=== PATIENT | male | born 1975 | race Caucasian/White ===

== ENCOUNTER 2021-05-08 10:57 | Inpatient (IN) | payer SELFPAY ==
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
[2021-05-08 10:59] VITALS: BP 136/89; PULSE 88; RESP 18; TEMP 37.1; O2SAT 94; BMI 22.4
[2021-05-08 11:12] VITALS: BP 136/89; PULSE 88; RESP 16; O2SAT 95
[2021-05-08 11:30] LABS: Amphetamines Screen Urine Positive (Negative); Barbiturates Screen Urine Negative (Negative); Benzodiazepines Screen Urine Negative (Negative); Cocaine Screen Urine Negative (Negative); Opiate Screen Urine Negative (Negative); PCP Screen Urine Negative (Negative); THC Screen Urine Positive (Negative)
--- NOTE | 2021-05-08 11:30 | XRR_ITS ---
PROCEDURE INFORMATION: Exam: XR Abdomen Exam date and time: 05/08/2021 11:30 AM Age: 46 years old Clinical indication: Abdominal pain; Additional info: ? Foreign body TECHNIQUE: Imaging protocol: XR of the abdomen. Views: Frontal supine view of the abdomen. 1 View. COMPARISON: CT abdomen pelvis w con* [id number] 07/25/2017 11:53 AM FINDINGS: Gastrointestinal tract: Normal. No bowel dilation. Negative for radiodense foreign body. There is moderate colonic fecal stasis in the ascending colon. Bones/joints: Unremarkable. XR/XR KUB [id number] IMPRESSION: No acute GI abnormality. Negative for radiodense GI tract foreign body
[2021-05-08 11:55] LABS: Basophils # 0.1 10^3/uL (0.0-0.1); Basophils % 0.8 %; Eosinophils % 0.3 %; Hematocrit 40.9 % (42.0-52.0); Hemoglobin 13.5 g/dL (11.7-16.6); Lymphocytes # 1.2 10^3/uL (0.8-4.8); Lymphocytes % 10.3 %; Mean Corpuscular Volume 90.9 fl (80-94); Mean Platelet Volume 10.4 fL (7.4-10.4); Monocytes % 9.2 %; Neutrophils # 8.87 10^3/uL (1.8-7.7); Nucleated Red Blood Cells % 0 %; Platelet Count 343 10^3/cmm (130-400); Red Cell Distribution Width 13.6 % (12.1-15.1); White Blood Count 11.2 10^3/uL (4.0-10.0)
[2021-05-08 12:28] LABS: Acetaminophen < 5.0 ug/mL (10-30); Alanine Aminotransferase 22 U/L (0-41); Albumin Level 4.9 g/dL (3.5-5.2); Alcohol Level < 10 mg/dL (0-10); Alkaline Phosphatase 93 IU/L (40-130); Aspartate Amino Transferase 26 U/L (0-40); Blood Urea Nitrogen 19 mg/dL (6-20); Calcium 8.8 mg/dL (8.5-10.5); Carbon Dioxide 25 mmol/L (22-29); Chloride 104 mmol/L (98-107); Glomerular Filtration Rate 104.5 mL/min (90-130); Glucose 98 mg/dL (65-115); Osmolality Calculated 296 mOsm/kg (285-295); Salicylate < 0.3 mg/dL (3-10); Sodium 142 mmol/L (136-145); Total Bilirubin 0.7 mg/dL (0.15-1.2); Total Protein 6.9 g/dL (6.6-8.7)
[2021-05-08 13:49] LABS: Free T4 Free Thyroxine 0.65 ng/dL (0.82-1.77)
[2021-05-08 15:23] VITALS: BP 122/76; PULSE 75; RESP 14; TEMP 36.8; O2SAT 98
[2021-05-08 20:29] VITALS: BP 126/79; PULSE 73; RESP 17; TEMP 36.8; O2SAT 97
[2021-05-09] MEDS: hyDROXYzine 25 mg Capsule 50 MG PO ×2 (02:39→19:50)
[2021-05-09 06:00] VITALS: BP 128/87; PULSE 73; RESP 19; TEMP 36.7; O2SAT 99
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
[2021-05-09] MEDS: levothyroxine 25 mcg Tablet PO (09:24)
[2021-05-09] MEDS: levothyroxine 100 mcg Tablet 200 MCG PO (09:24)
[2021-05-09 14:00] VITALS: BP 113/78; PULSE 88; RESP 20; TEMP 37.2; O2SAT 98
[2021-05-09 22:00] VITALS: BP 115/73; PULSE 54; RESP 20; TEMP 36.4; O2SAT 97
[2021-05-10 06:00] VITALS: BP 128/81; PULSE 62; RESP 18; TEMP 36.6; O2SAT 99
[2021-05-10] MEDS: levothyroxine 100 mcg Tablet 200 MCG PO (08:47)
[2021-05-10] MEDS: levothyroxine 25 mcg Tablet PO (08:47)
[2021-05-10] MEDS: nicotine 21 mg Patch 1 PATCH TRANSDERMA (09:33)
--- NOTE | 2021-05-10 10:30 | PC.OT ---
OT EVALUATION ATTEMPTED TWICE THIS A.M. PATIENT IS CURRENTLY VISITING WITH [facility] STAFF; WILL ATTEMPT AGAIN AT A LATER TIME.
[2021-05-10 14:00] VITALS: BP 95/65; PULSE 76; RESP 18; TEMP 36.9; O2SAT 99
--- NOTE | 2021-05-10 17:18 | P.NPUPN_ITS ---
Subjective NPU Subjective: Interval history: Patient presents today reporting that he has spoken to his and his job and things are stable and is good as can be expected in both situations. He showed positive insight into the situation identifying how it could have been so much worse for him or someone else. He reports that his goal is to learn his lesson from this relapse and to make his home life even better and to maintain his job which he reports is not in any kind of jeopardy. We discussed the risk-benefit alternatives of discharge in the morning and he understood and agreed proceed as is documented in his note. Mental Status Exam MSE Comments: This is a well-nourished, well-developed white male in hospital scrubs with improved grooming and adequate eye contact. No abnormal movements. Cooperative with exam in no acute distress. Speech was normal rate and volume. Patient mood described as good, affect congruent. Thought process, organized. Thought content: patient denies any suicidal or homicidal ideation, no delusions reported or noted, and denies any auditory or visual hallucinations. Attention and concentration are intact and memory is reliable but none were formally t ested. He is alert and oriented three times. Insight and judgment are limited, but improving Impulse control appears limited.? Vitals/I&O/Wt Last Vital Signs Temp 97.8 F 05/10/21 22:00 Pulse 71 05/10/21 22:00 Resp 20 H 05/10/21 22:00 BP 109/72 05/10/21 22:00 Pulse Ox 99 05/10/21 22:00 Data NPU : 05/08/21 11:35 05/08/21 11:35 A&P Assessment and plan (1) Sibling relational problem: Status: Acute (2) Methamphetamine abuse: Status: Acute (3) Acute psychosis: Status: Acute Plan This is a 46 year old white male with a long history of trauma and addiction with recent relapse on methamphetamine with psychotic features that lead to him intersecting with the police and being placed on a 96 hour hold. Continue current medications. We will offer medication as appropriate. Encourage individual, group and milieu therapy Continue q-15 minute check for safety Recommend sober living treatment at the highest level of care to which the patient is willing to commit. Will observe overnight and likely discharge tomorrow. Involuntary Hold Information 96 Hour Hold: 96 Hour Involuntary Admission: Yes 96 Hour Hold Ending Date: 05/14/21 96 Hour Hold Ending Time: 00:01 Attestations NPU Medical Necessity Statement*: Inpatient hospitalization is medically necessary and the clinically appropriate intervention at this time. We will monitor medications and make changes as indicated. Likely length of stay is 1-3 days. Coding Level of Care Code Acute Material Stockkeeper Yard for Keving Fwd Diagnoses Sibling relational problem Z63.8 Methamphetamine abuse F15.10 Acute psychosis F23
[2021-05-10] MEDS: hyDROXYzine 25 mg Capsule 50 MG PO (21:53)
[2021-05-10 22:00] VITALS: BP 109/72; PULSE 71; RESP 20; TEMP 36.6; O2SAT 99
[2021-05-11 06:00] VITALS: BP 108/78; PULSE 70; RESP 16; TEMP 36.8; O2SAT 99
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
[2021-05-11] MEDS: levothyroxine 100 mcg Tablet 200 MCG PO (07:53)
[2021-05-11] MEDS: acetaminophen 325 mg Tablet 650 MG PO (07:53)
[2021-05-11] MEDS: levothyroxine 25 mcg Tablet PO (07:53)
[2021-05-11 08:53] VITALS: BP 108/78; PULSE 70; RESP 16; TEMP 36.8; O2SAT 99
--- NOTE | 2021-05-11 09:30 | PC.NURSE ---
DISCHARGE- PT DISCHARGING AT THIS TIME. CALM, COOPERATIVE. DENIES ANY SI/HI AND AVH. HAS FOLLOW UP APPOINTMENT SCHEDULED. ALL PERSONAL BELONGINGS RETURNED TO PATIENT. PATIENT ARRIVED WITH BOTTLE OF ASSORTED PILLS THAT WERE NOT IN HIS NAME. PT REQUESTED STAFF TO KEEP AND DESTROY RATHER THAN RETURNING TO HIM AT PR. TO NPU TO PICK PT UP.
== END 2021-05-11 09:32 | disposition home or self-care (01) | DRG 885 ==
LOC: ER 14:05 → NP 14:19
PROVIDERS: Admitting Provider Psychiatry & Neurology Psychiatry; Emergency Provider Emergency Medicine; Visit Provider Psychiatry & Neurology Psychiatry
DX: F23 Brief psychotic disorder (principal); F17.210 Nicotine dependence, cigarettes, uncomplicated; F15.10 Other stimulant abuse, uncomplicated; Z63.0 Problems in relationship with spouse or partner
CPT/HCPCS: 36415; 74018; 80053; 80306; 80307; 84439; 84443; 85025; 97165; 99285

== ENCOUNTER 2023-02-22 16:25 | Emergency (ER) | payer SELFPAY ==
[2023-02-22 16:30] VITALS: BP 150/91; PULSE 68; RESP 18; TEMP 36.6; O2SAT 100; BMI 19.8
--- NOTE | 2023-02-22 16:38 | XRR_ITS ---
PROCEDURE INFORMATION: Exam: XR Abdomen Exam date and time: 02/22/2023 5:46 PM Age: 47 years old Clinical indication: Constipation TECHNIQUE: Imaging protocol: Radiologic exam of the abdomen. Views: Frontal supine view of the abdomen. 1 View. COMPARISON: CR XR KUB [id number] 05/08/2021 11:43 AM FINDINGS: Gastrointestinal tract: Mild increased gas and stool in the colon. Gas within the stomach. No small bowel dilatation or obstruction. Intraperitoneal space: No indication of free air. No abnormal calcifications are seen. Bones/joints: Visualized osseous structures show no acute abnormality. XR/XR KUB portable [id number] IMPRESSION: Nonspecific nonobstructive bowel gas pattern with suggestion of mild increased gas and stool in the colon which can be seen with constipation.
[2023-02-22 18:53] LABS: Basophils # 0.1 10^3/uL (0.0-0.1); Basophils % 0.8 %; Eosinophils # 0.3 10^3/uL (0.0-0.8); Eosinophils % 3.9 %; Hematocrit 39.3 % (37-53); Lymphocytes # 1.7 10^3/uL (0.8-4.8); Mean Corpuscular HGB Conc 34.1 g/dL (30-55); Mean Corpuscular Hemoglobin 29.7 pg (27-33); Mean Corpuscular Volume 87.1 fl (82-101); Mean Platelet Volume 9.3 fL (7.4-10.4); Monocytes % 12.5 %; Neutrophils # 4.77 10^3/uL (1.8-7.7); Neutrophils % 60.4 %; Nucleated Red Blood Cells % 0 %; Platelet Count 367 10^3/cmm (157-399); Red Blood Count 4.51 10^6/uL (3.85-5.65); Red Cell Distribution Width 13.9 % (12.1-15.1)
--- NOTE | 2023-02-22 18:55 | PC.NURSE ---
Report taken from Lola Osorio RN.
--- NOTE | 2023-02-22 19:13 | ED_ITS ---
HPI - Abdominal Pain 2 General: Chief Complaint: Abdominal Pain Stated Complaint: Abd, Cant use restroom, unable to eat, N/V Time Seen by Provider: 02/22/23 18:37 History of Present Illness: Patient presents to the ER with abdominal pain says has not had a bowel movement for approximately 1 week. Patient has attempted [id number]-sup-[id number] laxatives with no relief. Patient has had mild nausea vomiting with this. Patient states he is not use his levothyroxine for the last 30 days and this may be the cause of this. Patient has had decreased appetite's and decreased oral intake. Review of Systems 2 General: Reports: 10 or more systems reviewed and unremarkable except in HPI and below PFSH ED 2 PFSH: Medical History No significant past medical history Surgical History History of hernia repair History of carpal tunnel surgery Social History Substance/Drug Use: current Physical Exam 2 Const: COMMON NORMALS: no acute distress, average body habitus, patient oriented x3, no limitations, healthy appearing, alert and well nourished HENMT: COMMON NORMALS: normocephalic, atraumatic, hearing grossly normal bilaterally, external ears normal, Normal external nose present, moist oral mucous membranes and oropharynx normal HEAD & SCALP: normocephalic and atraumatic NOSE: Normal external nose present EXTERNAL EAR: Yes external ears normal Neck/C-Spine: COMMON NORMALS: no JVD Chest: COMMONS NORMALS: normal inspection of the chest and normal palpation of entire chest wall Resp: COMMON NORMALS: normal respiratory effort, No retractions, No use of accessory muscles and clear to auscultation bilaterally AUSCULTATION: clear to auscultation bilaterally Cardio: COMMON NORMALS: no JVD, regular rate, regular rhythm, S1 normal heart sound present, S2 normal heart sound present, No gallops present (Cardio), No clicks present (Cardio), No murmurs present (Cardio) and No rub (Cardio) R ATE: regular rate RHYTHM: regular rhythm HEART SOUNDS: S1 normal heart sound present and S2 normal heart sound present GI: COMMON NORMALS: Normal to inspection, nondistended, normoactive bowel sounds present, Soft to palpation, non-tender, No hepatosplenomegaly present and no masses PALPATION: Yes Soft to palpation and Yes No hepatosplenomegaly present Neuro: COMMON NORMALS: patient oriented x3 SENSORIUM/ORIENTATION: Yes alert Course 2 Vital Signs: Vital signs: Vital Signs Temperature 97.9 F 02/22/23 16:30 Pulse Rate 58 L 02/22/23 20:26 Respiratory Rate 16 02/22/23 19:57 Blood Pressure 130/91 02/22/23 20:26 Pulse Oximetry 98 02/22/23 20:26 Oxygen Delivery Me thod Room Air 02/22/23 20:26 MDM - Abdominal Pain Medical Decision Making Patient presents to the ER with complaints of constipation and being without his thyroid medicine for over a month. Lab work was obtained which revealed a significantly elevated TSH otherwise benign KUB showed pattern is consistent with constipation. Patient was given a liter of normal saline, 10 mg Dulcolax and 100 mg of Colace and will be restarted back on Synthroid 300 mcg the patient says he was taking previously. Differential Diagnosis Likely abdominal pain and constipation; Unlikely acute appendicitis, calculus of kidney, diverticulitis, endometriosis, gastroenteritis, pancreatitis or small bowel obstruction Medical Records I reviewed the patient's medical records. Lab Data I reviewed the patient's lab results. 02/22/23 18:42 02/22/23 18:42 Labs/Radiology: Radiology Impressions KUB X-Ray 02/22/23 16:38 IMPRESSION: Nonspecific nonobstructive bowel gas pattern with suggestion of mild increased gas and stool in the colon which can be seen with constipation. Laboratory Results WBC 7.90 10^3/uL (3.29-11.43) 02/22/23 18:42 RBC 4.51 10^6/uL (3.85-5.65) 02/22/23 18:42 Hgb 13.40 g/dL (11.27-16.99) 02/22/23 18:42 Hct 39.3 % (37-53) 02/22/23 18:42 MCV 87.1 fl (82-101) 02/22/23 18:42 MCH 29.7 pg (27-33) 02/22/23 18:42 MCHC 34.1 g/dL (30-55) 02/22/23 18:42 RDW 13.9 % (12.1-15.1) 02/22/23 18:42 Plt Count 367 10^3/cmm (157-399) 02/22/23 18:42 MPV 9.3 fL (7.4-10.4) 02/22/23 18:42 Neut % (Auto) 60.4 % 02/22/23 18:42 Lymph % (Auto) 22.0 % 02/22/23 18:42 [place] % (Auto) 12.5 % 02/22/23 18:42 Eos % (Auto) 3.9 % 02/22/23 18:42 Baso % (Auto) 0.8 % 02/22/23 18:42 Neut # (Auto) 4.77 10^3/uL (1.8-7.7) 02/22/23 18:42 Lymph # (Auto) 1.7 10^3/uL (0.8-4.8) 02/22/23 18:42 [place] # (Auto) 1.0 10^3/uL (0.2-0.9) H 02/22/23 18:42 Eos # (Auto) 0.3 10^3/uL (0.0-0.8) 02/22/23 18:42 Baso # (Auto) 0.1 10^3/uL (0.0-0.1) 02/22/23 18:42 Nucleated RBC % (auto) 0 % 02/22/23 18:42 Nucleated RBCs # 0.0 /100WBC 02/22/23 18:42 Sodium 142 mmol/L (136-145) 02/22/23 18:42 Potassium 3.6 mmol/L (3.5-5.1) 02/22/23 18:42 Chloride 106 mmol/L (98-107) 02/22/23 18:42 Carbon Dioxide 26 mmol/L (22-29) 02/22/23 18:42 Anion Gap 13.6 (5-19) 02/22/23 18:42 BUN 20 mg/dL (6-20) 02/22/23 18:42 Creatinine 1.1 mg/dL (0.7-1.2) 02/22/23 18:42 GFR Calculation 72.1 mL/min (90-130) L 02/22/23 18:42 Glucose 100 mg/dL (65-115) 02/22/23 18:42 Calculated Osmolality 297 mOsm/kg (285-295) H 02/22/23 18:42 Calcium 8.6 mg/dL (8.5-10.5) 02/22/23 18:42 Total Bilirubin 0.6 mg/dL (0.15-1.2) 02/22/23 18:42 AST 65 U/L (0-40) H 02/22/23 18:42 ALT 45 U/L (0-41) H 02/22/23 18:42 Alkaline Phosphatase 86 U/L (40-130) 02/22/23 18:42 Total Protein 6.3 g/dL (6.6-8.7) L 02/22/23 18:42 Albumin 4.2 g/dL (3.5-5.2) 02/22/23 18:42 Globulin 2.1 g/dL (1.3-4.6) 02/22/23 18:42 Lipase 41 U/L (13-60) 02/22/23 18:42 TSH 283.70 uIU/mL (0.27-4.20) H 02/22/23 18:42 Urine Color Yellow (Yellow) 02/22/23 19:08 Urine Appearance Clear (CLEAR) 02/22/23 19:08 Urine pH 6 (5-7) 02/22/23 19:08 Ur Specific [place] 1.030 (1.005-1.030) 02/22/23 19:08 Urine Protein Neg (Negative) 02/22/23 19:08 Urine Glucose (UA) Norm (Normal) 02/22/23 19:08 Urine Ketones 1+ (Negative) H 02/22/23 19:08 Urine Blood 2+ (Negative) H 02/22/23 19:08 Urine Nitrate Negative (Negative) 02/22/23 19:08 Urine Bilirubin Neg (Negative) 02/22/23 19:08 Urine Urobilinogen Norm mg/dL (Negative) 02/22/23 19:08 Ur Leukocyte Esterase Negative (Negative) 02/22/23 19:08 Urine RBC 0-4 /hpf (0-2) H 02/22/23 19:08 Urine WBC 0-4 /hpf (0-5) H 02/22/23 19:08 Ur Squamous Epith Cells 0-4 /hpf (0-5) H 02/22/23 19:08 Calcium Oxalate Crystal 5-10 /hpf H 02/22/23 19:08 Amorphous Sediment Not Reportable 02/22/23 19:08 Urine Bacteria n /hpf (NONE) 02/22/23 19:08 Hyaline Casts 0-4 /lpf H 02/22/23 19:08 Urine Mucus None /hpf 02/22/23 19:08 All radiology interpretation(s) finalized by discharge Discharge Plan Discharge Patient Disposition: Home Clinical Impression: Constipation, Hypothyroidism Condition: Stable Prescriptions: Discontinued levothyroxine 200 mcg Tablet 200 mcg PO DAILY Euthyrox 25 mcg tablet 25 mcg PO DAILY Discharge Orders: Discharge ED (Routine); Ordered 02/22/23 Ordered By: Jean Claude Hall Patient Instructions: Constipation - Adult, Hypothyroidism Coding Level of Care Code ED Information Services Tech for Chg [facility]
[2023-02-22 19:15] LABS: Add Urine Microscopic? YES; Bilirubin Urine Neg (Negative); Blood Urine 2+ (Negative); Glucose Urine UA Norm (Normal); Ketones Urine 1+ (Negative); Leukocyte Esterase Urine Negative (Negative); Nitrate Urine Negative (Negative); Protein Urine Neg (Negative); Urine Appearance Clear (CLEAR); Urine Color Yellow (Yellow); Urobilinogen Urine Norm (Negative); pH Urine 6 (5-7)
[2023-02-22 19:26] LABS: Alanine Aminotransferase 45 U/L (0-41); Albumin Level 4.2 g/dL (3.5-5.2); Alkaline Phosphatase 86 U/L (40-130); Anion Gap 13.6 (5-19); Aspartate Amino Transferase 65 U/L (0-40); Blood Urea Nitrogen 20 mg/dL (6-20); Calcium 8.6 mg/dL (8.5-10.5); Carbon Dioxide 26 mmol/L (22-29); Chloride 106 mmol/L (98-107); Globulin 2.1 g/dL (1.3-4.6); Glomerular Filtration Rate 72.1 mL/min (90-130); Glucose 100 mg/dL (65-115); Lipase 41 U/L (13-60); Osmolality Calculated 297 mOsm/kg (285-295); Potassium 3.6 mmol/L (3.5-5.1); Sodium 142 mmol/L (136-145); Total Bilirubin 0.6 mg/dL (0.15-1.2); Total Protein 6.3 g/dL (6.6-8.7)
[2023-02-22 19:29] LABS: Add Urine Culture? No; Bacteria Urine n /hpf; Hyaline Casts Urine 0-4 /lpf; RBC Urine 0-4 /hpf (0-2); Squamous Epithelial Cell Urine 0-4 /hpf (0-5); WBC Urine 0-4 /hpf (0-5)
[2023-02-22] MEDS: bisacodyl 5 mg Tablet 10 MG PO (19:52)
[2023-02-22] MEDS: docusate sodium 100 mg Capsule PO (19:52)
[2023-02-22] MEDS: sodium chloride 0.9% 1,000 ML 999 ML IV (19:53)
[2023-02-22 19:57] VITALS: BP 125/80; PULSE 55; RESP 16; O2SAT 98
[2023-02-22 20:26] VITALS: BP 130/91; PULSE 58; O2SAT 98
[2023-02-22 20:53] VITALS: BP 166/119; PULSE 66; RESP 16; O2SAT 96
== END 2023-02-22 20:54 | disposition home or self-care (01) ==
PROVIDERS: Emergency Medicine; Emergency Provider Emergency Medicine
DX: K59.00 Constipation, unspecified (principal); E03.9 Hypothyroidism, unspecified
CPT/HCPCS: 74018; 80053; 81001; 83690; 84443; 85025; 99284; J7030

== ENCOUNTER 2023-02-26 10:25 | Emergency (ER) | payer SELFPAY ==
--- NOTE | 2023-02-26 10:27 | XRR_ITS ---
PROCEDURE INFORMATION: Exam: XR Chest Exam date and time: 02/26/2023 11:06 AM Age: 47 years old Clinical indication: Angina; Additional info: Cp TECHNIQUE: Imaging protocol: Radiologic exam of the chest. Views: 1 view. COMPARISON: CR (ABDOMEN, ) 02/22/2023 5:46 PM FINDINGS: Lungs: No significant active pathology. Pleural spaces: No pleural effusion or pneumothorax. Heart/Mediastinum: Unremarkable. Bones/joints: No significant pathology. XR/XR chest 1V portable [id number] IMPRESSION: No significant active disease.
[2023-02-26 10:30] VITALS: BP 101/62; PULSE 75; RESP 16; TEMP 36.7; O2SAT 100
--- NOTE | 2023-02-26 10:32 | ECG_ITS ---
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 Measurements Intervals [place] Rate: 69 P: 75 VA: 168 QRS: 84 QRSD: 101 T: 69 QT: 411 QTc: 441 Interpretive Statements SINUS RHYTHM No previous ECG available for comparison Electronically Signed On 02-26-2023 11:40:52 HEALTH CARE / MEDICAL JOB TITLES by Carlos Pena M.D. [email or web address]
[2023-02-26 10:48] LABS: Basophils % 0.4 %; Eosinophils # 0.1 10^3/uL (0.0-0.8); Hematocrit 41.6 % (37-53); Lymphocytes # 1.8 10^3/uL (0.8-4.8); Lymphocytes % 16.2 %; Mean Corpuscular HGB Conc 32.7 g/dL (30-55); Mean Corpuscular Hemoglobin 29.5 pg (27-33); Mean Corpuscular Volume 90.2 fl (82-101); Mean Platelet Volume 9.2 fL (7.4-10.4); Monocytes # 1.4 10^3/uL (0.2-0.9); Monocytes % 12.4 %; Neutrophils # 7.75 10^3/uL (1.8-7.7); Neutrophils % 69.6 %; Nucleated Red Blood Cells % 0 %; Platelet Count 317 10^3/cmm (157-399); Red Blood Count 4.61 10^6/uL (3.85-5.65); Red Cell Distribution Width 14.2 % (12.1-15.1); White Blood Count 11.12 10^3/uL (3.29-11.43)
[2023-02-26 11:07] LABS: Troponin(5th) Baseline 14 ng/L (0-15)
[2023-02-26 11:14] LABS: Alanine Aminotransferase 64 U/L (0-41); Albumin Level 4.3 g/dL (3.5-5.2); Alkaline Phosphatase 90 U/L (40-130); Anion Gap 14.4 (5-19); Aspartate Amino Transferase 92 U/L (0-40); Blood Urea Nitrogen 15 mg/dL (6-20); Calcium 9.4 mg/dL (8.5-10.5); Carbon Dioxide 28 mmol/L (22-29); Chloride 96 mmol/L (98-107); Globulin 1.8 g/dL (1.3-4.6); Glomerular Filtration Rate 72.1 mL/min (90-130); Glucose 94 mg/dL (65-115); Osmolality Calculated 279 mOsm/kg (285-295); Potassium 4.4 mmol/L (3.5-5.1); Sodium 134 mmol/L (136-145); Total Bilirubin 0.5 mg/dL (0.15-1.2); Total Protein 6.1 g/dL (6.6-8.7)
[2023-02-26 11:23] VITALS: PULSE 75; RESP 20; O2SAT 97
[2023-02-26 11:30] VITALS: BP 104/74; PULSE 66; RESP 22; O2SAT 98
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
--- NOTE | 2023-02-26 12:35 | ECG_ITS ---
[facility] Test Date: 2023-02-26 Pat Name: Aidan Rodrigues Department: Room: Gender: Male Story Teller: : 1975 Requested By: Yola Drew Order Number: [id number] Terri MD: Carlos Pena M.D. Measurements Intervals [address] [place] Rate: 61 P: 72 AK: 179 QRS: 86 QRSD: 104 T: 71 QT: 425 QTc: 430 Interpretive Statements SINUS RHYTHM Compared to ECG 02/26/2023 10:32:17 No significant changes Electronically Signed On 02-26-2023 14:50:02 COMPOUNDER by Carlos Pena M.D. [id number]
[2023-02-26 13:14] VITALS: PULSE 58; RESP 18; O2SAT 99
[2023-02-26 13:19] LABS: Troponin 5 2HR 11.78 ng/L (0-15); Troponin 5 2HR Delta -2.22 ABS# (0-10)
== END 2023-02-26 13:41 | disposition home or self-care (01) ==
PROVIDERS: Emergency Medicine; Emergency Provider Emergency Medicine
DX: R07.89 Other chest pain (principal); F15.10 Other stimulant abuse, uncomplicated; E03.9 Hypothyroidism, unspecified; Z91.148 Patient's other noncompliance with medication regimen for other reason
CPT/HCPCS: 36415; 71045; 80053; 84443; 84484; 85025; 93005; 96372; 99285; J2060

== ENCOUNTER 2023-03-14 18:37 | Emergency (ER) | payer SELFPAY ==
[2023-03-14 18:55] VITALS: BP 128/82; PULSE 86; RESP 16; TEMP 36.4; O2SAT 97; BMI 20.9
--- NOTE | 2023-03-14 19:58 | ED_ITS ---
HPI - Dental/Oral General: Chief complaint: Dental/Oral Stated complaint: jaw swelling, congestion Time Seen by Provider: 03/14/23 19:26 Source: patient Mode of arrival: ambulatory Limitations: no limitations History of Present Illness: 47yo male presents with family for evalu ation of left-sided facial swelling and dental pain. Patient reports that he does have several broken teeth to the area. States that his pain started last night. Patient reports that he did have swelling to the area, so he did press on it. States blood did come out, then the swelling started. Patient denies any fever, difficulty swallowing, painful tongue movements. Associated symptoms: Denies fever(s) Review of Systems Const: Denies: fever(s) or chills ENMT: Reports: dental pain GI: Denies: nausea or vomiting PFSH ED PFSH: Medical History No significant past medical history Surgical History History of hernia repair History of carpal tunnel surgery Social History Substance/Drug Use: current Physical Exam Const: COMMON NORMALS: no acute distress GENERAL APPEARANCE: cooperative and comfortable OTHER: Patient is ambulatory to vertical flow exam chair without difficulty. He is interactive with exam appropriately. Family is at bedside HENMT: COMMON NORMALS: normocephalic and Normal external nose present HEAD & SCALP: normocephalic NOSE: Normal external nose present TEETH & GINGIVA: Yes poor dentition (throughout) and Yes other (localized tenderness and mild swelling above #11. No abscess visualized) THROAT: posterior oropharynx normal OTHER: Patient is able to move tongue with no difficulty. No drooling noted Neck/C-Spine: COMMON NORMALS: full ROM Resp: COMMON NORMALS: normal respiratory effort Extremity: COMMON NORMALS: full ROM Psych: COMMON NORMALS: cooperative Course Vital Signs: Vital signs: Vital Signs Temperature 97.5 F L 03/14/23 18:55 Pulse Rate 86 03/14/23 18:55 Respiratory Rate 16 03/14/23 18:55 Blood Pressure 128/82 03/14/23 18:55 Pulse Oximetry 97 03/14/23 18:55 MDM - Dental/Oral Medical Decision Making 47yo male here with family for evaluation of left upper dental pain that started last night and worsened with swelling of his face today. Patient does state that he has chronically bad teeth and he knows that he needs to have improved. States that he has had infection before, but has not had associated swelling of the face. States that he has not been on any antibiotics within the last few months. Patient denies fever, difficulty swallowing, painful tongue movements, drooling, any other concern at this time. Patient is nontoxic in appearance. Vital signs are stable. No indication of Ludewig's. Discussed with patient and family this is likely an infection although there is no abscess visualized. Augmentin prescribed and first dose provided while in the emergency department. Patient did receive ketorolac while in the emergency department as well. Recommend he follow-up with a dentist as soon as possible for definitive care of his teeth. Advised to return to the emergency department if any rapid worsening symptoms, difficulty swallowing, painful tongue movements, and as needed. Patient and family state understanding and have no further questions at this time. Differential Diagnosis Likely gingival abscess, dental caries, toothache, dental abscess and fracture of tooth Medical Records I reviewed the patient's medical records. No radiology studies performed this visit Discharge Plan Discharge Patient Disposition: Home Clinical Impression: Dental infection, Poor dentition Condition: Stable Prescriptions: New amoxicillin-pot clavulanate 875-125 mg tablet 1 tab PO Q12H Qty: 14 0RF ketorolac 10 mg tablet 10 mg PO Q6H PRN (Reason: pain) 5 Days Qty: 20 0RF No Action levothyroxine 300 mcg tablet 300 mcg PO DAILY Qty: 30 0RF Synthroid 300 mcg tablet 300 mcg PO DAILY Qty: 30 0RF Discharge Orders: Discharge ED (Routine); Ordered 03/14/23 Ordered By: Rommel Londono Discharge Diet: Advance as tolerated Discharge Activity: Resume usual activity Patient Instructions: Toothache (ED) Activity Restrictions/Additional Instructions: Augmentin has been sent to your pharmacy for concern of dental infection Ketorolac has been sent to your pharmacy to help with pain. Please do not take ibuprofen, naproxen, or Advil while taking this medication Use salt water rinses after eating and smoking for the next several days Application of a cool compress will help with swelling. Apply for 5 to 10 minutes at a time. Follow-up with your dentist as soon as possible Return to the emergency department if any rapid worsening symptoms, difficulty swallowing, painful tongue movements, and as needed Coding Level of Care Code ED Percussion Welding Machine Operator for Gianfranco Britton
[2023-03-14] MEDS: ketorolac 30 mg/mL INJ IM (20:06)
[2023-03-14] MEDS: amoxicillin-clav 875-125 mg Tablet 1 TAB PO (20:07)
== END 2023-03-14 20:16 | disposition home or self-care (01) ==
PROVIDERS: Emergency Provider Nurse Practitioner
DX: K04.7 Periapical abscess without sinus (principal)
CPT/HCPCS: 96372; 99284; J1885

== ENCOUNTER 2024-01-15 12:24 | Inpatient (IN) | payer SELFPAY ==
[2024-01-15 12:37] VITALS: BP 142/90; PULSE 98; RESP 18; O2SAT 96
--- NOTE | 2024-01-15 12:44 | ED.C_ITS ---
HPI - Psych 2 General: Chief Complaint: Psychiatric Symptoms Stated Complaint: MHE Time Seen by Provider: 01/15/24 12:28 Source: patient Mode of arrival: ambulatory Limitations: no limitations History of Present Illness: Patient is a 48-year-old male presents to ED today for medical evaluation. Patient states he did methamphetamine 3 days ago and states he normally handles meth well . He states today he has had a plethora of symptoms. History is hard to follow as patient's speech is tangential and illogical. He begins talking about how he feels like the sun is beating down on him. He feels like he can feel electrical signals in his brain and feels like somebody shocked his testicles. He feels the weight of oppression upon him . He feels like he is being choked. States he can feel my insides . He is pacing around his room hyperactive. MD complaint: altered mental status (psychosis) Onset (ago): day(s) Duration: constant History of same: Yes Relieving factors: none Exacerbating factors: drug use Associated psychiatric symptoms: racing thoughts Treatments prior to arrival: none Related Data Previous Rx's Medication Instructions Recorded levothyroxine 300 mcg tablet 300 mcg PO DAILY #30 tabs 02/22/23 Allergies Allergy/AdvReac Type Severity Reaction Status Date / Time No Known Allergies Allergy Verified 02/26/23 12:30 Review of Systems 2 General: Reports: ROS unobtainable due to medical condition and ROS unobtainable due to mental status (psychosis ) [facility] ED 2 PFSH: Medical History No significant past medical history Surgical History History of hernia repair History of carpal tunnel surgery Social History Substance/Drug Use: current Physical Exam 2 Const: COMMON NORMALS: average body habitus, patient oriented x3, no limitations, healthy appearing, alert and well nourished EXAM LIMITATIONS: a ltered mental status (psychosis) GENERAL APPEARANCE: cooperative and other (hyperactive) Resp: COMMON NORMALS: normal respiratory effort and clear to auscultation bilaterally AUSCULTATION: clear to auscultation bilaterally Cardio: COMMON NORMALS: regular rate and regular rhythm RATE: regular rate RHYTHM: regular rhythm Extremity: GENERAL: Yes normal exam except as noted Neuro: JESUS COMA SCALE: document GCS findings Jesus coma scale eye opening: Spontaneous [place] coma scale verbal response: Orientated Jesus coma scale motor response: Obey commands [place] coma scale total score: 15 COMMON NORMALS: patient oriented x3 SENSORIUM/ORIENTATION: Yes alert Psych: APPEARANCE: Yes grossly normal ATTITUDE: Yes engaged A CTIVITY/MOTOR BEHAVIOR: Yes appropriate eye contact SPEECH: Yes excessive MOOD & AFFECT: Yes elevated mood THOUGHT PROCESS: Illogical thought process present and Tangential thought process present INSIGHT: Fair insight present (Psych) JUDGEMENT: Fair judgement present (Psych) Course 2 Consultations: Consultation #1: Dr. 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 Lab Data 01/15/24 13:26 01/15/24 13:26 Laboratory Results WBC 12.14 10^3/uL (3.29-11.43) H 01/15/24 13:26 RBC 4.77 10^6/uL (3.85-5.65) 01/15/24 13:26 Hgb 14.00 g/dL (11.27-16.99) 01/15/24 13:26 Hct 41.2 % (37-53) 01/15/24 13:26 MCV 86.4 fl (82-101) 01/15/24 13:26 MCH 29.4 pg (27-33) 01/15/24 13:26 MCHC 34.0 g/dL (30-55) 01/15/24 13:26 RDW 13.2 % (12.1-15.1) 01/15/24 13:26 Plt Count 395 10^3/cmm (157-399) 01/15/24 13:26 MPV 9.5 fL (7.4-10.4) 01/15/24 13:26 Neut % (Auto) 73.8 % 01/15/24 13:26 Lymph % (Auto) 14.1 % 01/15/24 13:26 [place] % (Auto) 11.0 % 01/15/24 13:26 Eos % (Auto) 0.3 % 01/15/24 13:26 Baso % (Auto) 0.6 % 01/15/24 13:26 Neut # (Auto) 8.95 10^3/uL (1.8-7.7) H 01/15/24 13:26 Lymph # (Auto) 1.7 10^3/uL (0.8-4.8) 01/15/24 13:26 [place] # (Auto) 1.3 10^3/uL (0.2-0.9) H 01/15/24 13:26 Eos # (Auto) 0.0 10^3/uL (0.0-0.8) 01/15/24 13:26 Baso # (Auto) 0.1 10^3/uL (0.0-0.1) 01/15/24 13:26 Nucleated RBC % (auto) 0 % 01/15/24 13:26 Nucleated RBCs # 0.0 /100WBC 01/15/24 13:26 Sodium 136 mmol/L (136-145) 01/15/24 13:26 Potassium 4.1 mmol/L (3.5-5.1) 01/15/24 13:26 Chloride 101 mmol/L (98-107) 01/15/24 13:26 Carbon Dioxide 24 mmol/L (22-29) 01/15/24 13:26 Anion Gap 15.1 (5-19) 01/15/24 13:26 BUN 13 mg/dL (6-20) 01/15/24 13:26 Creatinine 0.9 mg/dL (0.7-1.2) 01/15/24 13:26 GFR Calculation 90.4 mL/min (90-130) 01/15/24 13:26 Glucose 102 mg/dL (65-115) 01/15/24 13:26 Calculated Osmolality 282 mOsm/kg (285-295) L 01/15/24 13:26 Calcium 8.5 mg/dL (8.5-10.5) 01/15/24 13:26 Total Bilirubin 0.5 mg/dL (0.15-1.2) 01/15/24 13:26 AST 36 U/L (0-40) 01/15/24 13:26 ALT 26 U/L (0-41) 01/15/24 13:26 Alkaline Phosphatase 94 U/L (40-130) 01/15/24 13:26 Total Protein 6.4 g/dL (6.6-8.7) L 01/15/24 13:26 Albumin 4.3 g/dL (3.5-5.2) 01/15/24 13:26 Globulin 2.1 g/dL (1.3-4.6) 01/15/24 13:26 TSH 11.66 uIU/mL (0.27-4.20) H 01/15/24 13:26 Salicylates < 0.3 mg/dL (3-10) L 01/15/24 13:26 Urine Opiates Screen Negative ng/mL (Negative) 01/15/24 13:12 Acetaminophen < 5.0 ug/mL (10-30) L 01/15/24 13:26 Ur Barbiturates Screen Negative ng/mL (Negative) 01/15/24 13:12 Ur Phencyclidine Scrn Negative ng/mL (Negative) 01/15/24 13:12 Ur Amphetamines Screen Positive ng/mL (Negative) H 01/15/24 13:12 U Benzodiazepines Scrn Negative ng/mL (Negative) 01/15/24 13:12 Urine Cocaine Screen Negative ng/mL (Negative) 01/15/24 13:12 U Marijuana (THC) Screen Positive ng/mL (Negative) H 01/15/24 13:12 Ethyl Alcohol < 10 mg/dL (0-10) 01/15/24 13:26 No radiology studies performed this visit Discharge Plan Discharge Patient Disposition: Admitted As Inpatient Clinical Impression: Methamphetamine abuse, Acute psychosis Condition: Stable Prescriptions: No Action levothyroxine 300 mcg tablet 300 mcg PO DAILY Qty: 30 0RF Patient Instructions: Opioid Safety, Pain Management Coding Level of Care Code ED Palliative Care Nurse Practitioner for Gianfranco Britton
[2024-01-15] MEDS: LORazepam 2 mg/mL INJ 1 mL 1 MG IM (13:10)
[2024-01-15] MEDS: haloperidol inj 5 mg/mL INJ 1 mL IM (13:14)
[2024-01-15 13:15] VITALS: TEMP 36.7
--- NOTE | 2024-01-15 13:35 | PC.PHAR ---
Addendum entered by Tegan Evans 01/15/24 13:39: Verified with Ross Conteh. Original Note: Pt unable to verify his medications. Only current medication is Levothyroxin 300mcg qam last filled 12/14/23 90ds.
[2024-01-15 13:42] LABS: Basophils # 0.1 10^3/uL (0.0-0.1); Basophils % 0.6 %; Eosinophils % 0.3 %; Hematocrit 41.2 % (37-53); Lymphocytes # 1.7 10^3/uL (0.8-4.8); Lymphocytes % 14.1 %; Mean Corpuscular Hemoglobin 29.4 pg (27-33); Mean Corpuscular Volume 86.4 fl (82-101); Mean Platelet Volume 9.5 fL (7.4-10.4); Monocytes # 1.3 10^3/uL (0.2-0.9); Neutrophils # 8.95 10^3/uL (1.8-7.7); Neutrophils % 73.8 %; Nucleated Red Blood Cells % 0 %; Platelet Count 395 10^3/cmm (157-399); Red Blood Count 4.77 10^6/uL (3.85-5.65); Red Cell Distribution Width 13.2 % (12.1-15.1); White Blood Count 12.14 10^3/uL (3.29-11.43)
--- NOTE | 2024-01-15 13:45 | PC.NURSE ---
96 hr rights reviewed with patient @1317 with assistance of [facility] security messenger [employer]. All education reviewed with patient. No verbalized comments, concerns, or questions at this time. Patient does appear to be under the influence of something, but verbalizes understandment to 96 hr hold conditions. Patient copy left @bedside with patient. Patient provided with a water.
[2024-01-15 13:54] LABS: Amphetamines Screen Urine Positive (Negative); Barbiturates Screen Urine Negative (Negative); Benzodiazepines Screen Urine Negative (Negative); Cocaine Screen Urine Negative (Negative); Opiate Screen Urine Negative (Negative); PCP Screen Urine Negative (Negative); THC Screen Urine Positive (Negative)
[2024-01-15 14:10] LABS: Acetaminophen < 5.0 ug/mL (10-30); Alanine Aminotransferase 26 U/L (0-41); Albumin Level 4.3 g/dL (3.5-5.2); Alcohol Level < 10 mg/dL (0-10); Alkaline Phosphatase 94 U/L (40-130); Anion Gap 15.1 (5-19); Aspartate Amino Transferase 36 U/L (0-40); Blood Urea Nitrogen 13 mg/dL (6-20); Calcium 8.5 mg/dL (8.5-10.5); Carbon Dioxide 24 mmol/L (22-29); Chloride 101 mmol/L (98-107); Creatinine Clr Calc Pharmacy 105.8816; Globulin 2.1 g/dL (1.3-4.6); Glomerular Filtration Rate 90.4 mL/min (90-130); Glucose 102 mg/dL (65-115); Osmolality Calculated 282 mOsm/kg (285-295); Potassium 4.1 mmol/L (3.5-5.1); Salicylate < 0.3 mg/dL (3-10); Sodium 136 mmol/L (136-145); Thyroid Stimulating Hormone 11.66 uIU/mL (0.27-4.20); Total Bilirubin 0.5 mg/dL (0.15-1.2); Total Protein 6.4 g/dL (6.6-8.7)
[2024-01-15 17:07] VITALS: BP 137/80; PULSE 99; O2SAT 96
[2024-01-15 17:10] VITALS: BP 137/80; PULSE 99; O2SAT 96
[2024-01-15 17:12] VITALS: BP 129/85; PULSE 65; RESP 20; TEMP 36.6; O2SAT 99
--- NOTE | 2024-01-15 17:47 | PC.NURSE ---
Patient came to the unit because he reports feelings of oppression. Patient states that his family has been acting weird. Patient's family however states that patient himself is acting weird. Patient feels as though he has been poisoned. Patient endorses taking methamphetamines three days ago. Patient has flight of ideas, paranoia, and disorganized thought flow. During admission assessment, patient denies suicidal thoughts, homicidal thoughts, and hallucinations. Patient says that he sometimes has anxiety and depression. Patient was given ativan and haldol IM in ED. Patient kept falling asleep during shift assessment. Patient calm and polite.
--- NOTE | 2024-01-15 20:04 | PC.NURSE ---
pt ref vs resp 18 charge notified
[2024-01-16 06:00] VITALS: BP 126/82; PULSE 72; RESP 18; TEMP 36.7; O2SAT 94
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
[2024-01-16] MEDS: levothyroxine 150 mcg Tablet 300 MCG PO (09:23)
[2024-01-16 13:54] VITALS: BP 114/74; PULSE 88; RESP 16; TEMP 36.8; O2SAT 99
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
[2024-01-16] MEDS: nicotine 2 mg Gum BUCCAL (17:26)
[2024-01-16 20:17] VITALS: BP 125/81; PULSE 63; RESP 18; TEMP 37; O2SAT 99
[2024-01-17 06:00] VITALS: BP 137/91; PULSE 68; RESP 16; TEMP 36.8; O2SAT 98
[2024-01-17] MEDS: nicotine 4 mg lozenge MUCOUS MEM ×5 (06:13→19:51)
[2024-01-17] MEDS: levothyroxine 150 mcg Tablet 300 MCG PO (08:25)
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
[2024-01-17 14:55] VITALS: BP 110/80; PULSE 87; RESP 18; TEMP 37.1; O2SAT 97
--- NOTE | 2024-01-17 15:49 | P.NPUPN_ITS ---
Subjective NPU 2 Subjective: Patient presented today reporting that he is doing okay. He reports that he is aware that his family is now saying that he cannot go home until he has had some sober living treatment. He reports he will be working with the social work team to consider what options are available. He reports that they are exploring [facility] as well as other options. He continues to report no need for any additional medications. He denies any side effects with current medications. Mental Status Exam 2 MSE Comments: This is a slender possibly underweight but well-developed white male in hospital scrubs with limited grooming and adequate eye contact. No abnormal movements. Cooperative with exam in mild distress. Speech was normal rate and volume. Patient mood described as a little better, affect slightly subdued. Thought process, organized. Thought content: patient denies any suicidal or homicidal ideation, no delusions reported or noted, and denies any auditory or visual hallucinations but does acknowledge that there were some perceptual disturbances that led to him coming to the hospital that he now attributes to methamphetamine use. Attention and concentration are intact and memory appears mostly reliable but none were formally tested. He is alert and oriented x 3. Insight and judgment are limited. Impulse control appears limited. Vitals/I&O/Wt Last Vital Signs Temp 98.7 F 01/17/24 14:55 Pulse 87 01/17/24 14:55 Resp 18 01/17/24 14:55 BP 110/80 01/17/24 14:55 Pulse Ox 97 01/17/24 14:55 O2 Del Method Room Air 01/16/24 13:54 Data NPU 01/15/24 13:26 01/15/24 13:26 A&P Assessment and plan (1) Acute psychosis: (2) Sibling relational problem: (3) Acute psychosis: (4) Methamphetamine use disorder, severe: Plan This is a 48 year old white male with a long history of trauma and addiction with with past and present history of methamphetamine use with psychotic features with a previous hospitalization with these almost identical issues who started having some perceptual disturbances that led to him being brought to the emergency department and admitted secondary to the psychotic symptoms. 1. Continue off medications currently. But continue home medications. 2. Encourage individual, group and milieu therapy 3. Continue q-15 minute check for safety 4. Recommend sober living treatment at the highest level of care to which the patient is willing to commit. He is considering inpatient options. 5. Obtain collateral information. 6. Evaluate for safety against the backdrop of the 96-hour hold. Involuntary Hold Information 2 96 Hour Hold: 96 Hour Involuntary Admission: Yes 96 Hour Hold Ending Date: 01/22/24 96 Hour Hold Ending Time: 12:01 Other Hold: Hold End Date: 01/22/24 Attestations NPU 2 Medical Necessity Statement*: Inpatient hospitalization is medically necessary and the clinically appropriate intervention at this time. We will monitor/initiate medications and make changes as indicated. Patient will be in the hospital for over two midnights. Likely length of stay is 1-3 days. Coding Level of Care Code Acute Code for g Fwd Diagnoses Acute psychosis F23 Sibling relational problem Z63.8 Methamphetamine use disorder, severe F15.20
[2024-01-17] MEDS: trazodone 50 mg Tablet PO (19:52)
[2024-01-17] MEDS: hyDROXYzine 25 mg Capsule 50 MG PO (19:52)
[2024-01-17 20:09] VITALS: BP 114/80; PULSE 77; RESP 18; TEMP 36.8; O2SAT 96
[2024-01-18 06:00] VITALS: BP 134/86; PULSE 68; RESP 16; TEMP 37; O2SAT 99
[2024-01-18] MEDS: nicotine 4 mg lozenge MUCOUS MEM ×4 (06:13→20:23)
[2024-01-18] MEDS: acetaminophen 325 mg Tablet 650 MG PO (06:13)
[2024-01-18] MEDS: levothyroxine 150 mcg Tablet 300 MCG PO (08:33)
[2024-01-18] MEDS: hyDROXYzine 25 mg Capsule 50 MG PO ×2 (12:11→20:23)
[2024-01-18 14:00] VITALS: BP 115/77; PULSE 79; RESP 18; TEMP 36.6; O2SAT 98
[2024-01-18] MEDS: OLANZapine 5 mg ODT PO (15:55)
--- NOTE | 2024-01-18 17:23 | P.NPUPN_ITS ---
Subjective NPU 2 Subjective: Patient presented today reporting that he is feeling better and believes that things are going fine. He is excited about the fact that he was able to get into [facility] so quickly. He reports that he is looking forward to discharge tomorrow and continuing there. He denies any side effects to medications and denies any other concerns. Mental Status Exam 2 MSE Comments: This is a slender possibly underweight but well-developed white male in hospital scrubs with limited grooming and adequate eye contact. No abnormal movements. Cooperative with exam in no acute distress. Speech was normal rate and volume. Patient mood described as better, affect slightly subdued. Thought process, organized. Thought content: patient denies any suicidal or homicidal ideation, no delusions reported or noted, and denies any auditory or visual hallucinations. Attention and concentration are intact and memory appears mostly reliable but none were formally tested. He is alert and oriented x 3. Insight and judgment are limited. Impulse control appears limited. Vitals/I&O/Wt Last Vital Signs Temp 98 F 01/18/24 14:00 Pulse 79 01/18/24 14:00 Resp 18 01/18/24 14:00 BP 115/77 01/18/24 14:00 Pulse Ox 98 01/18/24 14:00 O2 Del Method Room Air 01/18/24 14:00 Data NPU 01/15/24 13:26 01/15/24 13:26 A&P Assessment and plan (1) Acute psychosis: (2) Sibling relational problem: (3) Acute psychosis: (4) Methamphetamine use disorder, severe: Plan This is a 48 year old white male with a long history of trauma and addiction with with past and present history of methamphetamine use with psychotic features with a previous hospitalization with these almost identical issues who started having some perceptual disturbances that led to him being brought to the emergency department and admitted secondary to the psychotic symptoms. 1. Continue off medications currently. But continue home medications. 2. Encourage individual, group and milieu therapy 3. Continue q-15 minute check for safety 4. Recommend sober living treatment at the highest level of care to which the patient is willing to commit. Plan for discharge to [facility] tomorrow. 5. Obtain collateral information. 6. Evaluate for safety against the backdrop of the 96-hour hold. Involuntary Hold Information 2 96 Hour Hold: 96 Hour Involuntary Admission: Yes 96 Hour Hold Ending Date: 01/22/24 96 Hour Hold Ending Time: 12:01 Other Hold: Hold End Date: 01/22/24 Attestations NPU 2 Medical Necessity Statement*: Inpatient hospitalization is medically necessary and the clinically appropriate intervention at this time. We will monitor/initiate medications and make changes as indicated. Likely length of stay is 1 day. Coding Level of Care Code Acute Code for Chg Fwd Diagnoses Acute psychosis F23 Sibling relational problem Z63.8 Methamphetamine use disorder, severe F15.20
[2024-01-18 19:27] VITALS: BP 112/78; PULSE 74; RESP 18; TEMP 36.7; O2SAT 98
[2024-01-18] MEDS: trazodone 50 mg Tablet PO (20:23)
[2024-01-18 21:57] VITALS: BP 112/78; PULSE 74; RESP 18; TEMP 36.7; O2SAT 98
[2024-01-19 06:00] VITALS: BP 132/82; PULSE 68; RESP 18; TEMP 36.4; O2SAT 98
[2024-01-19] MEDS: acetaminophen 325 mg Tablet 650 MG PO (06:53)
[2024-01-19] MEDS: nicotine 4 mg lozenge MUCOUS MEM (06:54)
[2024-01-19] MEDS: OLANZapine 5 mg ODT PO (08:47)
[2024-01-19] MEDS: levothyroxine 150 mcg Tablet 300 MCG PO (08:50)
[2024-01-19 09:26] VITALS: BP 132/82; PULSE 68; RESP 17; TEMP 36.4; O2SAT 98
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
== END 2024-01-19 09:41 | disposition home or self-care (01) | DRG 897 ==
LOC: ER 15:16 → NP 15:57
PROVIDERS: Admitting Provider Psychiatry & Neurology Psychiatry; Emergency Provider Physician Assistant; Visit Provider Psychiatry & Neurology Psychiatry
DX: F15.259 Other stimulant dependence with stimulant-induced psychotic disorder, unspecified (principal); Z63.8 Other specified problems related to primary support group; R63.6 Underweight; Z68.20 Body mass index [BMI] 20.0-20.9, adult
CPT/HCPCS: 36415; 80053; 80306; 80307; 84443; 85025; 96372; 97150; 97165; 99285; J1630; J2060

== ENCOUNTER 2024-07-20 10:38 | Inpatient (IN) | payer BC, MEDICAID, SELFPAY ==
[2024-07-20] VITALS (54 sets, daily range): BP systolic 113–138; BP diastolic 65–88; PULSE 0–127; RESP 16–31; TEMP 37.3; O2SAT 90–99; BMI 17.6; BMI 21.4
[2024-07-20 11:15] LABS: Basophils # 0.1 10^3/uL (0.0-0.1); Basophils % 0.3 %; Hematocrit 50.3 % (37-53); Lymphocytes # 1.2 10^3/uL (0.8-4.8); Mean Corpuscular HGB Conc 32.4 g/dL (30-55); Mean Corpuscular Hemoglobin 28.4 pg (27-33); Mean Corpuscular Volume 87.6 fl (82-101); Mean Platelet Volume 9.8 fL (7.4-10.4); Monocytes # 3.6 10^3/uL (0.2-0.9); Neutrophils # 24.82 10^3/uL (1.8-7.7); Neutrophils % 83.1 %; Nucleated Red Blood Cells % 0 %; Platelet Count 386 10^3/cmm (157-399); Red Blood Count 5.74 10^6/uL (3.85-5.65); Red Cell Distribution Width 16.2 % (12.1-15.1)
[2024-07-20 11:42] LABS: Acetaminophen < 5.0 ug/mL (10-30); Alanine Aminotransferase 48 U/L (0-41); Albumin Level 4.4 g/dL (3.5-5.2); Alcohol Level < 10 mg/dL (0-10); Alkaline Phosphatase 127 U/L (40-130); Anion Gap 27.3 (5-19); Aspartate Amino Transferase 62 U/L (0-40); Blood Urea Nitrogen 40 mg/dL (6-20); Calcium 9.4 mg/dL (8.5-10.5); Carbon Dioxide 18 mmol/L (22-29); Chloride 100 mmol/L (98-107); Creatinine Clr Calc Pharmacy 35.8794; Globulin 3.2 g/dL (1.3-4.6); Glomerular Filtration Rate 33.9 mL/min (90-130); Glucose 132 mg/dL (65-115); Osmolality Calculated 302 mOsm/kg (285-295); Potassium 5.3 mmol/L (3.5-5.1); Salicylate 0.9 mg/dL (3-10); Sodium 140 mmol/L (136-145); Thyroid Stimulating Hormone 1.14 uIU/mL (0.27-4.20); Total Bilirubin 0.7 mg/dL (0.15-1.2); Total Protein 7.6 g/dL (6.6-8.7)
[2024-07-20] MEDS: LORazepam 1 MG/0.5 ML injection 2 MG IM (11:58)
[2024-07-20] MEDS: water for injection-sterile 10 ML 1.2 ML (11:59)
[2024-07-20] MEDS: ziprasidone 20 mg/mL SDV IM (11:59)
[2024-07-20 12:06] LABS: Creatine Phosphokinase 1230 U/L (39-308)
--- NOTE | 2024-07-20 12:08 | PC.NURSE ---
96 hour hold rights read and reviewed with patient. Patient stated why I am I on a hold? I am not hurting anyone or myself. i don't need to take any medications I am fine. This nurse explained to patient that we are concerned for his safety and the 96 hour hold was placed for his safety. This nurse read 96 hour hold rights to patient. Patient stated Do what you want, I don't care. Copy of rights given to patient.
[2024-07-20] MEDS: sodium chloride 0.9% 1,000 ML 999 ML IV ×2 (12:59→13:47)
--- NOTE | 2024-07-20 13:14 | ED.C_ITS ---
HPI - Psych 2 General: Chief Complaint: Psychiatric Symptoms Stated Complaint: mhe Time Seen by Provider: 07/20/24 10:43 Related Data Previous Rx's ?Medication ?Instructions ?Recorded hydroxyzine pamoate 25 mg capsule 50 mg (2 x 25 mg) PO Q6H PRN 01/19/24 Anxiety 30 days #120 caps levothyroxine 300 mcg tablet 300 mcg PO DAILY 30 days #30 tabs 01/19/24 olanzapine 5 mg disintegrating 5 mg PO Q4H PRN 4 tablet Agitation/Psychosis 30 days #30 tabs Allergies Allergy/AdvReac Type Severity Reaction Status Date / Time No Known Allergies Allergy Verified 01/15/24 18:01 [facility] ED 2 [facility]: Medical History (Updated 07/20/24 @ 13:17 by Yung Merchant MD) Psychiatric care Methamphetamine abuse No significant past medical history Surgical History History of hernia repair History of carpal tunnel surgery Social History Substance/Drug Use: current Course 2 Vital Signs: Vital signs: Vital Signs Pulse Rate 127 H 07/20/24 10:38 Respiratory Rate 20 H 07/20/24 10:38 Blood Pressure 113/88 07/20/24 10:38 Pulse Oximetry 97 07/20/24 10:38 Oxygen Delivery Me thod Room Air 07/20/24 10:38 MDM - Psych Medical Decision Making Patient comes in acute psychosis, erratic, unable to repeat or verbalize consequences of his decisions. Unable to repeat questions when asked. Pressured speech responding to internal stimuli. Patient was not cooperative and had to be physically restrained. Then was given chemical restraints and once calm and physical restraints were removed. However on his lab work he has an elevated white count of 29 with a mildly elevated potassium and a creatinine of 2.1 from a baseline of 0.9. He also has a CPK of 1200. Given this patient will need IV fluids and monitoring to ensure resolution of his acute kidney injury. He also has approximately 25 or greater ticks on him at this time which will need to be removed. Given all this patient would not be medically cleared today for a psychiatric admission and will need to be admitted to the floor. I have consulted psychiatry Dr. Zayas who agrees to consult. For timing please see the order. And I have just spoken with Dr. Carmichael of the hospitalist for admission to ICU. Differential Diagnosis Likely acute psychosis, suicidal ideation and drug-induced psychotic disorder Lab Data 07/20/24 11:09 07/20/24 11:09 Laboratory Results WBC 29.90 10^3/uL (3.29-11.43) H 07/20/24 11:09 RBC 5.74 10^6/uL (3.85-5.65) H 07/20/24 11:09 Hgb 16.30 g/dL (11.27-16.99) 07/20/24 11:09 Hct 50.3 % (37-53) 07/20/24 11:09 MCV 87.6 fl (82-101) 07/20/24 11:09 MCH 28.4 pg (27-33) 07/20/24 11:09 MCHC 32.4 g/dL (30-55) 07/20/24 11:09 RDW 16.2 % (12.1-15.1) H 07/20/24 11:09 Plt Count 386 10^3/cmm (157-399) 07/20/24 11:09 MPV 9.8 fL (7.4-10.4) 07/20/24 11:09 Neut % (Auto) 83.1 % 07/20/24 11:09 Lymph % (Auto) 4.0 % 07/20/24 11:09 [place] % (Auto) 12.0 % 07/20/24 11:09 Eos % (Auto) 0.0 % 07/20/24 11:09 Baso % (Auto) 0.3 % 07/20/24 11:09 Neut # (Auto) 24.82 10^3/uL (1.8-7.7) H 07/20/24 11:09 Lymph # (Auto) 1.2 10^3/uL (0.8-4.8) 07/20/24 11:09 [place] # (Auto) 3.6 10^3/uL (0.2-0.9) H 07/20/24 11:09 Eos # (Auto) 0.0 10^3/uL (0.0-0.8) 07/20/24 11:09 Baso # (Auto) 0.1 10^3/uL (0.0-0.1) 07/20/24 11:09 Nucleated RBC % (auto) 0 % 07/20/24 11:09 Nucleated RBCs # 0.0 /100WBC 07/20/24 11:09 Sodium 140 mmol/L (136-145) 07/20/24 11:09 Potassium 5.3 mmol/L (3.5-5.1) H 07/20/24 11:09 Chloride 100 mmol/L (98-107) 07/20/24 11:09 Carbon Dioxide 18 mmol/L (22-29) L 07/20/24 11:09 Anion Gap 27.3 (5-19) H 07/20/24 11:09 BUN 40 mg/dL (6-20) H 07/20/24 11:09 Creatinine 2.1 mg/dL (0.7-1.2) H 07/20/24 11:09 GFR Calculation 33.9 mL/min (90-130) L 07/20/24 11:09 Glucose 132 mg/dL (65-115) H 07/20/24 11:09 Calculated Osmolality 302 mOsm/kg (285-295) H 07/20/24 11:09 Calcium 9.4 mg/dL (8.5-10.5) 07/20/24 11:09 Total Bilirubin 0.7 mg/dL (0.15-1.2) 07/20/24 11:09 AST 62 U/L (0-40) H 07/20/24 11:09 ALT 48 U/L (0-41) H 07/20/24 11:09 Alkaline Phosphatase 127 U/L (40-130) 07/20/24 11:09 Creatine Kinase 1230 U/L (39-308) H* 07/20/24 11:09 Total Protein 7.6 g/dL (6.6-8.7) 07/20/24 11:09 Albumin 4.4 g/dL (3.5-5.2) 07/20/24 11:09 Globulin 3.2 g/dL (1.3-4.6) 07/20/24 11:09 TSH 1.14 uIU/mL (0.27-4.20) 07/20/24 11:09 Salicylates 0.9 mg/dL (3-10) L 07/20/24 11:09 Acetaminophen < 5.0 ug/mL (10-30) L 07/20/24 11:09 Ethyl Alcohol < 10 mg/dL (0-10) 07/20/24 11:09 No radiology studies performed this visit Discharge Plan Discharge Patient Disposition: Admitted As Inpatient Clinical Impression: Acute psychosis, Methamphetamine use disorder, severe, Non compliance w medication regimen, GEETA (acute kidney injury), Acute dehydration, Rhabdomyolysis Condition: Stable Coding Level of Care Code ED Business Services Manager for Gianfranco Britton
--- NOTE | 2024-07-20 13:18 | P.HP_ITS ---
Providers/Chief Complaint 2 Chief Complaint: mhe History of Present Illness Aidan Rodrigues is a 49 year old male with past medical history of psychosis, hypothyroidism, meth abuse was brought into the ER because of altered mental status. As per the history from ER physician patient was found without his clothes knocking at the houses. As per the patient apparently his car broke down and he was feeling too hot and his clothes got wet so he took them off and thought the world was going to end hence he started knocking on the door. In the ER patient was found to be psychotic, combative for which he had to be physically restrained and was given Geodon. Blood work showed rhabdomyolysis, white count 29,000, creatinine of 2.1 and he was found covered with multiple ticks all over his body. When seen patient was awake not alert, confused, calm. Review of Systems 2 General: Reports: ROS unobtainable due to mental status Medications/Allergies Home Medications ?Medication ?Instructions ?Recorded ?Confirmed ?Last Taken ?Type levothyroxine 300 mcg tablet 300 mcg PO DAILY 30 days #30 tabs 01/19/24 07/20/24 Unknown Rx Allergies Allergy/AdvReac Type Severity Reaction Status Date / Time No Known Allergies Allergy Verified 01/15/24 18:01 PFSH Acute 2 PFSH: Medical History (Updated 07/20/24 @ 15:11 by Montrell Carmichael MD) Psychiatric care Methamphetamine abuse No significant past medical history Surgical History History of hernia repair History of carpal tunnel surgery Social History Substance/Drug Use: current Vitals/I&O/Wt Last Vital Signs Pulse 127 H 07/20/24 10:38 Resp 20 H 07/20/24 10:38 BP 113/88 07/20/24 10:38 Pulse Ox 97 07/20/24 10:38 O2 Del Method Room Air 07/20/24 10:38 Weight last 48 hrs Weight 58.967 kg Physical Exam 2 Narrative: General: No acute distress, AO x 1 to 2, currently calm, confused HEENT: PERRLA, pupils bilaterally equal and reactive Chest: Normal vesicular breath sounds, no added sounds, equal good air entry bilaterally CVS: S1-S2 regular, no murmurs, no tachycardia, no gallops, no rubs Abdomen: Soft, nontender, no organomegaly, bowel sounds present Neuro: No focal deficits, no facial deformity, AO x3, power 5/5 in all limbs Const: COMMON NORMALS: no acute distress EXAM LIMITATIONS: altered mental status and behavioral limitations GENERAL APPEARANCE: cooperative, well developed, disheveled, lethargic and frail appearing; not well hydrated NUTRITIONAL APPEARANCE: thin Data 07/21/24 08:14 07/21/24 08:14 A&P Assessment and plan (1) Acute psychosis: (2) Sepsis: (3) GEETA (acute kidney injury): (4) Acute dehydration: (5) Rhabdomyolysis: (6) Methamphetamine use disorder, severe: (7) Hyperkalemia: (8) Transaminitis: Plan 49-year-old gentleman with past medical history of amphetamine abuse presents to the ER with psychosis found to have leukocytosis, GEETA, rhabdomyolysis covered in ticks. Leukocytosis: Could be in setting of dehydration versus infectious process. Sepsis: SIRS: Tachycardic, Febrile, Leukocytosis Source: Tick bite/possible cystitis End organ damage: GEETA Lactic acid within normal limits Patient did eceive full 30 mL/kg BW. Continue with NS at 100 cc/h. Monitor blood pressures. Keep mean artery pressure 65 mmHg. Check blood culture, urinalysis followed by urine culture, MRSA swab, trend procalcitonin,. Empirically start on IV vancomycin and Zosyn. De-escalate as per culture sensitivity. If leukocytosis resolves or patient remains afebrile will de- escalate antibiotics. Cannot rule out tick bite infection. Patient does have transaminitis and GEETA. No thrombocytopenia. Check tick panel. Start on oral doxycycline. Acute kidney injury: Could be in setting of dehydration versus in setting of sepsis. Associated with rhabdomyolysis. Medical reconciliation done for nephrotoxic drugs. NS 100 cc/h. Repeat BMP in afternoon. Monitor CPK daily. CT of abdomen pelvis to rule out obstructive nephropathy. Urine lyte, urine creat. Associated with hyperkalemia: Getting IV fluids as above. Sodium bicarb push along with calcium gluconate. BMP in afternoon. Acute psychosis: History of amphetamine abuse. Could be in setting of drug abuse. Check urine drug screen. Received Geoed in ER and needed to be physically restrained. On 96-hour hold as per ER. Precedex drip. Haldol every 4 hours as needed. Transaminitis: Most likely in setting of rhabdomyolysis. Check hepatitis panel, HIV. Hypothyroidism: Seems patient is on levothyroxine 300 mcg daily. Check TSH. Full code Regular diet Protonix OPD prophylaxis Heparin for DVT prophylaxis. PDMP PDMP Reviewed: Not Reviewed Attestations 2 Medical Necessity Statement*: Admit for more than 2 midnights for management of acute psychosis, acute kidney injury, hyperkalemia with rhabdomyolysis in a patient with history of meth abuse placed on 96-hour hold by ER requiring psychiatric evaluation Diagnoses Acute psychosis F23 Sepsis A41.9 GEETA (acute kidney injury) N17.9 Acute dehydration E86.0 Rhabdomyolysis M62.82 Rhabdomyolysis type: non-traumatic Methamphetamine use disorder, severe F15.20 Hyperkalemia E87.5 Transaminitis R74.01
[2024-07-20] MEDS: piperacillin-tazobactam 3.375 GM in sodium chloride 0.9% (plus) 50 ML IV ×2 (13:49→21:03)
[2024-07-20 14:02] LABS: Lactic Sepsis W/Reflex 1.4 mmol/L (0.5-2.2)
--- NOTE | 2024-07-20 14:08 | CTR_ITS ---
PROCEDURE INFORMATION: Exam: CT Abdomen And Pelvis Without Contrast Exam date and time: 07/20/2024 2:24 PM Age: 49 years old Clinical indication: Other: Renal faliure, drug abuse TECHNIQUE: Imaging protocol: Computed tomography of the abdomen and pelvis without contrast. Radiation optimization: All CT scans at this facility use at least one of these dose optimization techniques: automated exposure control; mA and/or kV adjustment per patient size (includes targeted exams where dose is matched to clinical indication); or iterative reconstruction. COMPARISON: CT abdomen pelvis w con* [id number] 07/25/2017 11:53 AM RADIATION DOSE METRICS: Total DLP (mGy-cm): 393.92 FINDINGS: Liver: Normal. No mass. Gallbladder and biliary ducts: Normal. No calcified stones. No ductal dilation. Pancreas: Normal. No ductal dilation. Spleen: Normal. No splenomegaly. Adrenal glands: Normal. No mass. Kidneys and ureters: Normal. No hydronephrosis. Stomach and bowel: Unremarkable. No obstruction. No mucosal thickening. Appendix: No evidence of appendicitis. Intraperitoneal space: Unremarkable. No free air. No significant fluid collection. Vasculature: Unremarkable. No abdominal aortic aneurysm. Lymph nodes: Unremarkable. No enlarged lymph nodes. Urinary bladder: Unremarkable as visualized. Reproductive: Unremarkable as visualized. Bones/joints: There is a Schmorl's node involving the inferior endplate of the L1 body with surrounding sclerosis. Soft tissues: Unremarkable. CT/CT abdomen pelvis con [id number] IMPRESSION: No acute findings.
[2024-07-20 14:11] LABS: Procalcitonin 0.63 ng/mL (0-0.5)
--- NOTE | 2024-07-20 15:25 | PC.NURSE ---
NO BP CORD ON UNIT EXTRA - HAVE HAD HOUSE SUP TO LOOK FOR BP CORD.
[2024-07-20 15:40] LABS: HIV 1 & 2 Antibody Non-Reactive (Non-Reactiv); HIV 1 & 2 Antigen Non-Reactive (Non-Reactiv)
--- NOTE | 2024-07-20 15:42 | USCV_ITS ---
Aidan Rodrigues Age: 49 Gender: M : 1975 Exam Date: 07/20/2024 17:48 Ordering Phys: Montrell Carmichael MD Technologist: Yanick Murray Exam Location: [facility] [place] Indication: chf, meth use BP: 126 / 73 HR: 86 Rhythm: Sinus Technical Quality: Adequate MEASUREMENTS (Male / Female) Normal Values 2D ECHO LV Diastolic Diameter PLAX 5.0 cm 4.2 - 5.9 / 3.9 - 5.3 cm IVS Diastolic Thickness 0.8 cm 0.6 - 1.0 / 0.6 - 0.9 cm IVS Systolic Thickness 1.2 cm LVPW Diastolic Thickness 1.1 cm 0.6 - 1.0 / 0.6 - 0.9 cm LVPW Systolic Thickness 1.4 cm LVOT Diameter 2.1 cm LV Ejection Fraction 2D Teich 78.9 % LV Ejection Fraction MOD 4C 69.5 % LV Ejection Fraction MOD 2C 68.4 % LV Ejection Fraction 2C AL 69.5 % LA Diameter 3.0 cm RA Systolic Volume 4C AL 29.6 ml RA Systolic Volume 4C MOD 28.8 ml LA Sys Volume AL 40.2 cm cubed LA Sys Volume Index AL 23.5 cm cubed/m squared Aorta at Sinotubular Diameter 2.3 cm IVC Diameter 1.5 cm M-MODE LA Ao Ratio MM 0.9 AV Cusp Separation MM 2.0 cm DOPPLER AV Peak Velocity 172.7 cm/s LVOT Peak Velocity 141.0 cm/s AV Area Cont Eq vti 3.1 cm squared AV Area Cont Eq pk 2.7 cm squared MV Peak Velocity 84.0 cm/s MV Area PHT 4.9 cm squared Mitral E to A Ratio 0.8 TV Peak Velocity 257.5 cm/s TR Peak Velocity 326.0 cm/s TR Peak Gradient 42.5 mmHg TR Mean Velocity 271.0 cm/s TR Mean Gradient 30.8 mmHg TR Velocity Time Integral 67.5 cm PV Peak Velocity 119.0 cm/s RV Ejection Time 0.2 s FINDINGS Left Ventricle Normal left ventricular size, systolic function and wall thickness, with no regional wall motion abnormalities. Left ventricular ejection fraction is estimated at 65 %. Right Ventricle Normal right ventricular size and systolic function. Right Atrium Normal right atrial size. Left Atrium Normal left atrial size. Mitral Valve Structurally normal mitral valve.no mitral valve regurgitation. Aortic Valve Structurally normal trileaflet aortic valve. Tricuspid Valve Structurally normal tricuspid valve. Trace tricuspid valve regurgitation. Pulmonic Valve Structurally normal pulmonic valve. Trace pulmonary valve regurgitation. Pericardium No pericardial effusion. Aorta Normal size aortic root and proximal ascending aorta. IVC Normal inferior vena cava. CONCLUSIONS Normal left ventricular size and function. Normal LVEF 65%. Normal chamber sizes. Normal RV size and RV systolic function. No significant valvular abnormality noted. Normal right heart and pulmonary pressures. Elizabeth Mcmillan MD (Electronically Signed) Final Date: 21 Jul 2024 11:11 S
[2024-07-20 15:59] LABS: Estmated Average Glucose 114; Hemoglobin A1C 5.6 % (4.0-6.0)
[2024-07-20 16:03] LABS: Hepatitis A Antibody IgM Non-Reactive (Nonreactive); Hepatitis B Core AB, Total Non-Reactive (Nonreactive); Hepatitis B Surface AB < 3.5 (11.5-1000); Hepatitis B Surface Antigen Non-Reactive (Nonreactive); Hepatitis C Virus Antibody Non-Reactive (Nonreactive)
[2024-07-20 16:04] LABS: Iron 196 ug/dL (59-158); Percent Saturation 59.5 % (20-50); Total Iron Binding Capacity 329 mcg/dl; Unsaturated Iron Binding 133 ug/dL (112-347)
[2024-07-20 16:17] LABS: Vitamin B12 1194 pg/mL (232-1245)
[2024-07-20] MEDS: pantoprazole 40 mg SDV IVP (16:35)
[2024-07-20] MEDS: sodium chloride 0.9% 1,000 ML 100 ML IV (16:35)
[2024-07-20] MEDS: heparin 5,000 unit/mL INJ 1 mL 5000 UNIT SUBCUT (16:35)
[2024-07-20 16:49] LABS: Bilirubin Urine Negative (Negative); Blood Urine 2+ (Negative); Glucose Urine UA Negative (Normal); Ketones Urine 2+ (Negative); Leukocyte Esterase Urine Negative (Negative); Nitrate Urine Negative (Negative); Protein Urine 1+ (Negative); Specific Gravity, Urine 1.021 (1.005-1.030); Urine Appearance Cloudy (CLEAR); Urine Color Yellow (Yellow); pH Urine 5.5 (5-7)
--- OUTSIDE RECORDS SUMMARY | 2024-07-20 16:49 | XMS_ITS | Clinical Summary ---
Author Organization 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 Active ibuprofen (MOTRIN) 800 mg tablet Take 800 mg by mouth every 6 hours as needed for Pain, Mild. Active HYDROcodone-acet aminophen (NORCO) 10-325 mg Tablet 05/14/2013 Active hydromorPHONE (DILAUDID) 4 mg tablet 05/14/2013 Active Active Problems Problem Noted Date Diagnosed Date Carpal tunnel syndrome 12/10/2012 Unspecified hypothyroidism 12/10/2012 Neuropathy, upper extremitie s, bilateral, with mild axonal sensory loss 12/10/2012 Carpal tunnel syndrome, bila teral, S/P right CTR, occupationally acquired 12/10/2012 Family History Medical History Relation Name Comments Heart Disease Father Thyroid Disease Father Healthy Mother Relation Name Status Comments Father Alive Mother Alive Social History Tobacco Use Types Packs/Day Years Used Date Smoking Tobacco: Every Day Cigarettes Smokeless Tobacco: Never Alcohol Use Standard Drinks/Week Comments No 0 (1 standard drink = 0.6 oz pur e alcohol) Sex and Gender Information Value Date Recorded Sex Assigned at Not on file Legal Sex Male 3:45 PM CDT Gender Identity Not on file Sexual Orientation Not on file Occupation Industry Job Start Date Job End Date Not on file Not on file Not on file Not on file Last Filed Vital Signs Vital Sign Reading Time Taken Comments Blood Pressure 139/85 07/09/2013 10:30 AM CDT Pulse 70 07/09/2013 10:30 AM CDT Temperature 36.8 C (98.2 F) 04/04/2013 3:15 PM [employer] Respiratory Rate 16 04/04/2013 3:15 PM [employer] Oxygen Saturation 98% 04/04/2013 3:15 PM [employer] Inhaled Oxygen Concentration - - Weight 96.6 kg (213 lb) 07/09/2013 10:30 AM CDT Height 182.9 cm (6') 07/09/2013 10:30 AM CDT Body Mass Index 28.89 07/09/2013 10:30 AM CDT Plan of Treatment Health Maintenance Due Date Last Done Comments DTAP/TDAP/TD VACCINES (1 - Tdap) 1995 HEPATITIS B VACCINES (1 of 3 - 19+ 3-dose series) 03/06 COLORECTAL SCREENING 2021 Colorectal Cancer Screening 2021 FIT-DNA Q 3 years 2021 FIT/FOBT Q 1 year 2021 Flex Sig/CT Colonography Q 5 years 2021 INFLUENZA VACCINE (#1) 2023 [place] [id number] [place] [id number] Advance Directives For more information, please contact: [phone] * Full Code (Latest Code Status on File) Date Activated Date Inactivated Comments 04/04/2013 10:36 AM 04/04/2013 5:43 PM Care Teams Log Data Technician Relationship Specialty Start Date End Date Sanket Gardner MD PCP - General Internal Medicine 03/22/13
[2024-07-20 16:55] LABS: Add Urine Microscopic? YES; Bacteria Urine None Seen /hpf; Squamous Epithelial Cell Urine 0-5 /hpf (0-5)
[2024-07-20 16:56] LABS: Amphetamines Screen Urine Positive (Negative); Barbiturates Screen Urine Negative (Negative); Benzodiazepines Screen Urine Positive (Negative); Cocaine Screen Urine Negative (Negative); Opiate Screen Urine Negative (Negative); PCP Screen Urine Negative (Negative); THC Screen Urine Negative (Negative)
[2024-07-20 17:07] LABS: Potassium, Radom Urine 59 mmol/L; Urine Random Chloride 55 mmol/L; Urine Random Sodium 56 mmol/L
[2024-07-20 17:17] LABS: UA Slide Review UA Slide Review Perf
[2024-07-20 17:18] LABS: Mucus Urine 1+ /hpf; Sperm Urine 1+ /hpf; WBC Urine 0-4 /hpf (0-5)
[2024-07-20 17:19] LABS: Coarse Granular Casts Urine 0-4 /lpf
[2024-07-20] MEDS: calcium gluconate 0.1 gm/mL 10% SDV 10mL 1 GM IVP (18:14)
[2024-07-20] MEDS: docusate sodium 100 mg Capsule PO (18:14)
[2024-07-20] MEDS: sodium bicarbonate 8.4% syr 150 MEQ in dextrose 5% 200 ML 700 MEQ IV (18:16)
[2024-07-20 19:55] LABS: Anion Gap 17.3 (5-19); Blood Urea Nitrogen 31 mg/dL (6-20); Carbon Dioxide 22 mmol/L (22-29); Chloride 105 mmol/L (98-107); Creatinine Clr Calc Pharmacy 53.8191; Glomerular Filtration Rate 54.1 mL/min (90-130); Glucose 187 mg/dL (65-115); Osmolality Calculated 303 mOsm/kg (285-295); Potassium 3.3 mmol/L (3.5-5.1); Sodium 141 mmol/L (136-145)
[2024-07-20 22:07] LABS: MRSA PCR OZH (swab) NOT DETECTED (Negative)
[2024-07-20] MEDS: OLANZapine 5 mg ODT PO (23:12)
[2024-07-20] MEDS: morphine 4 mg/mL SDV 1 mL 2 MG IVP (23:17)
[2024-07-20] MEDS: haloperidol inj 5 mg/mL INJ 1 mL IVP (23:59)
[2024-07-21] VITALS (21 sets, daily range): BP systolic 103–129; BP diastolic 58–80; PULSE 62–85; RESP 10–24; TEMP 36.7; O2SAT 94–95
[2024-07-21] MEDS: LORazepam 2 mg/mL INJ 1 mL IVP (01:00)
[2024-07-21] MEDS: LORazepam 1 MG/0.5 ML injection 2 MG (01:01)
--- NOTE | 2024-07-21 02:26 | PC.NURSE ---
Addendum entered by Linda Santamaria RN 07/21/24 02:53: Following attempt to replace IV, patient refused further and stated if he needed any more IV medications this nurse could give him the syringe of medication and he would directly inject it into his own vein, this nurse informed him that was against policy. Original Note: Upon arrival from ED patient was pleasant,cooperative, talkative, and friendly. Had no concerns regarding monitoring (cardiac, blood pressure, and O2) and voiced no complaints. Shortly thereafter patient began complaining about the bed, stated the mattress changes were tripping him out . Changed out of ICU bed to a regular mattress. Following patient was becoming more agitated and pulling at tele, eventually began pulling it off and stated I just can't stand it. Get it off of me. Tele removed at that time, refused to have blood pressure taken and pulled O2 monitor off as well. Began attempting to walk around room with IV connected and then pulled IV out of left AC. After discussion patient was agreeable to taking Zyprexa Zydis which was ineffective, and patient requested pain medication. While attempting to administer IV Morphine, patient was very paranoid regarding NS flush stated he thought he was being drugged. Reassurance given that it was only to check patency of IV and to flush medication through, and patient was apprensive but agreeable. Spoke with Dr. Galindo and made aware of patient refusing tele, and increasing agitation. This nurse voiced concern regarding IM injections that were ordered possibly causing more agitation. Orders received to change IM haldol to IV, discontinue 4 mg IV Ativan, and if haldol was ineffective give 2 mg IV ativan. Patient paced around his room, and stated he was very anxious. Was agreeable to Haldol administration. Following patient continued to pace in his room, stated he couldn't stand feeling of the tape and continued pulling at it dispite reinforcing with siva. Patient eventually displaced second IV. Attempted to replace and patient became very apprehensive and anxious during, and stopped attempt. Patient refused second attempt. Patient began to calm after Lorazepam administration, and began to rest. Approached to spot check blood pressure and tele, patient immediately refused stood up, balled up his fists, and stated he wanted to be left alone. No distress noted, respirations equal and unlabored, and easily awakened. Will continue to monitor.
--- NOTE | 2024-07-21 04:39 | PC.NURSE ---
Awakened patient to do AM labs, stated lab could draw labs after he wakes up. Instructed lab to reattempt later in the morning.
--- NOTE | 2024-07-21 07:01 | PC.NURSE ---
Patient continued to refuse IV and meds. Dr. Wiseman made aware, ordered to hold heparin and Zosyn. Attempted morning labs, patient stated they could be drawn after he wakes up for the morning. Currently resting, no anxiety or restlessness. Has continued to refuse vitals and tele.
[2024-07-21 08:21] LABS: Basophils # 0.1 10^3/uL (0.0-0.1); Basophils % 0.5 %; Eosinophils # 0.4 10^3/uL (0.0-0.8); Eosinophils % 3.4 %; Hematocrit 37.5 % (37-53); Lymphocytes % 7.4 %; Mean Corpuscular HGB Conc 33.3 g/dL (30-55); Mean Corpuscular Hemoglobin 28.7 pg (27-33); Monocytes # 1.4 10^3/uL (0.2-0.9); Neutrophils % 77.4 %; Nucleated Red Blood Cells % 0 %; Platelet Count 242 10^3/cmm (157-399); Red Blood Count 4.36 10^6/uL (3.85-5.65); Red Cell Distribution Width 15.9 % (12.1-15.1); White Blood Count 12.93 10^3/uL (3.29-11.43)
[2024-07-21 08:43] LABS: Alanine Aminotransferase 63 U/L (0-41); Albumin Level 3.3 g/dL (3.5-5.2); Alkaline Phosphatase 84 U/L (40-130); Anion Gap 16.5 (5-19); Aspartate Amino Transferase 87 U/L (0-40); Blood Urea Nitrogen 20 mg/dL (6-20); Calcium 7.9 mg/dL (8.5-10.5); Carbon Dioxide 22 mmol/L (22-29); Chloride 106 mmol/L (98-107); Chol HDL Ratio 2.34 mg/dL (1.0-5.00); Cholesterol 145 mg/dL (0-200); Creatinine Clr Calc Pharmacy 105.8568; Globulin 1.8 g/dL (1.3-4.6); Glomerular Filtration Rate 90.1 mL/min (90-130); Glucose 116 mg/dL (65-115); HDL Cholesterol 62 mg/dL (60-100); LDL Cholesterol Calculated 67 mg/dL (50-129); LDL HDL Ratio 1.08 RATIO (0.00-3.22); Magnesium 1.9 mg/dL (1.7-2.3); Osmolality Calculated 296 mOsm/kg (285-295); Potassium 3.5 mmol/L (3.5-5.1); Sodium 141 mmol/L (136-145); Total Bilirubin 1.1 mg/dL (0.15-1.2); Total Protein 5.1 g/dL (6.6-8.7); Triglycerides 78 mg/dL (0-150)
[2024-07-21 08:48] LABS: Procalcitonin 0.71 ng/mL (0-0.5)
[2024-07-21 09:01] LABS: Folate Level 11.2 ng/mL (4.5-32.2)
--- NOTE | 2024-07-21 09:34 | PC.NURSE ---
0800 Awake and calm and cooperative. Ask if willing to have blood drawn, said yes. Lab did draw blood. 0915 Breakfast tray at bedside, patient asleep soundly with normal resp. Letting him sleep
[2024-07-21] MEDS: morphine 4 mg/mL SDV 1 mL 2 MG IVP ×3 (11:02→22:05)
[2024-07-21] MEDS: levothyroxine 150 mcg Tablet 300 MCG PO (11:02)
--- NOTE | 2024-07-21 12:48 | P.PN_ITS ---
Subjective 2 Subjective: No acute events overnight. Overnight apparently patient stopped his IV out and had episode of agitation for which he was given Haldol. Today morning he had an IV line. More awake and alert,. Alert to x 3. Has remained hemodynamically stable and afebrile. Vitals/I&O/Wt Last Vital Signs Temp 99.1 F 07/20/24 20:20 Pulse 70 07/21/24 08:00 Resp 18 07/21/24 11:02 BP 118/80 07/21/24 08:00 Pulse Ox 95 07/21/24 11:02 O2 Del Method Room Air 07/20/24 20:23 07/20/24 07/21/24 07/21/24 22:59 06:59 14:59 Intake Total 50 / 849.2 Balance 50 / 849.2 Weight last 48 hrs Weight 70 kg Weight 71.5 kg Weight 58.967 kg Physical Exam 2 Narrative: General: No acute distress, calm, AAO x 3 HEENT: PERRLA, pupils bilaterally equal and reactive Chest: Normal vesicular breath sounds, no added sounds, equal good air entry bilaterally CVS: S1-S2 regular, no murmurs, no tachycardia, no gallops, no rubs Abdomen: Soft, nontender, no organomegaly, bowel sounds present Neuro: No focal deficits, no facial deformity, AO x3, power 5/5 in all limbs Const: COMMON NORMALS: no acute distress GENERAL APPEARANCE: cooperative, comfortable, well developed, frail appearing and well hydrated NUTRITIONAL APPEARANCE: thin Data 07/21/24 08:14 07/21/24 08:14 Micro: Microbiology 07/20/24 16:42 Bacterial Antigens - Final Urine Kidney 07/20/24 13:33 Blood Culture - Preliminary Blood SPECIMEN COLLECTED 07/20/24 13:33 Blood Culture - Preliminary Blood SPECIMEN COLLECTED A&P Assessment and plan (1) Acute psychosis: (2) Sepsis: (3) GEETA (acute kidney injury): (4) Acute dehydration: (5) Rhabdomyolysis: (6) Methamphetamine use disorder, severe: (7) Hyperkalemia: (8) Transaminitis: Plan 49-year-old gentleman with past medical history of amphetamine abuse presents to the ER with psychosis found to have leukocytosis, GEETA, rhabdomyolysis covered in ticks. Leukocytosis: Most likely in setting of dehydration. Less likely infectious in nature. Sepsis: Was present on admission. Since then has been ruled out. DC IV fluids. Patient has good oral intake. Monitor blood pressures. Keep mean artery pressure 65 mmHg. Does have history of IV drug abuse. Follow-up blood culture. UA negative for concerns for UTI. Follow-up MRSA swab negative. DC vancomycin. For now continue with Zosyn while patient is in process being transition to Neuropsych Unit. Continue with oral doxycycline given PICC exposure while tick panel is awaited. Acute kidney injury: Associated with rhabdomyolysis and hyperkalemia on admission. So far resolved. Most likely setting of dehydration. DC fluids as above. Encourage oral intake. CT umbrellas negative for obstructive nephropathy. Associated with hyperkalemia: Resolved. Acute psychosis: Urine drug screen positive for amphetamines, benzos. On 96-hour hold as per ER. Psych consulted. Haldol as needed. Patient is medically cleared to be transferred to Neuropsych Unit. Transaminitis: Hepatitis panel, HIV negative. Stable. Hypothyroidism: TSH normal. Continue with home dose of levothyroxine. Full code Regular diet Protonix OPD prophylaxis Heparin for DVT prophylaxis. PDMP PDMP Reviewed: Not Reviewed Attestations 2 Medical Necessity Statement*: Requires further hospitalization for management of acute psychosis due to amphetamine abuse as patient is on 96-hour hold and requires further treatment as per psychiatric team Diagnoses Acute psychosis F23 Sepsis A41.9 GEETA (acute kidney injury) N17.9 Acute dehydration E86.0 Rhabdomyolysis M62.82 Rhabdomyolysis type: non-traumatic Methamphetamine use disorder, severe F15.20 Hyperkalemia E87.5 Transaminitis R74.01
[2024-07-21] MEDS: piperacillin-tazobactam 3.375 GM in sodium chloride 0.9% (plus) 50 ML IV ×2 (13:16→21:12)
--- NOTE | 2024-07-21 13:27 | PC.NURSE ---
1320 Patient awake, alert and oriented, and calm and cooperative. Dr. Zayas visited, says will have a bed in [facility] in the morning, then he can go there. Patient talked with dr. zayas. Only took juice off tray. I ask if hed like a cold cut sandwich, he said yes. Patient is being very cooperative and pleasant at this time.
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
--- NOTE | 2024-07-21 15:51 | PC.NURSE ---
1830 Patient ask for pain med from feet pain. Given. here and now visiting with patient. Patient refused Heparin after told the need and possible side affects if not taking med. No Heparin given.
--- NOTE | 2024-07-21 16:11 | PC.NURSE ---
1600 Ask to leave since visiting hours are over. She left at 1605. Patient drinking water well. No further complaints.
[2024-07-21] MEDS: bacitracin ointment 28 gm 1 APPLIC TOPICAL (16:39)
[2024-07-21] MEDS: doxycycline 100 mg Tablet PO (17:35)
[2024-07-21] MEDS: nicotine 4 mg lozenge MUCOUS MEM (17:35)
[2024-07-22] VITALS (14 sets, daily range): BP systolic 115–127; BP diastolic 71–78; PULSE 57–81; RESP 2–22; TEMP 36.7; O2SAT 98
[2024-07-22] MEDS: piperacillin-tazobactam 3.375 GM in sodium chloride 0.9% (plus) 50 ML IV (04:47)
[2024-07-22] MEDS: OLANZapine 5 mg ODT PO (04:47)
[2024-07-22 05:14] LABS: Basophils # 0.1 10^3/uL (0.0-0.1); Basophils % 0.6 %; Eosinophils # 1.2 10^3/uL (0.0-0.8); Eosinophils % 13.9 %; Hematocrit 38.8 % (37-53); Lymphocytes # 1.1 10^3/uL (0.8-4.8); Mean Corpuscular Hemoglobin 28.4 pg (27-33); Mean Corpuscular Volume 88.8 fl (82-101); Mean Platelet Volume 10.2 fL (7.4-10.4); Monocytes % 11.3 %; Neutrophils # 5.19 10^3/uL (1.8-7.7); Nucleated Red Blood Cells % 0 %; Platelet Count 207 10^3/cmm (157-399); Red Blood Count 4.37 10^6/uL (3.85-5.65); White Blood Count 8.51 10^3/uL (3.29-11.43)
[2024-07-22 05:33] LABS: Alanine Aminotransferase 137 U/L (0-41); Albumin Level 3.3 g/dL (3.5-5.2); Alkaline Phosphatase 90 U/L (40-130); Anion Gap 11.5 (5-19); Aspartate Amino Transferase 121 U/L (0-40); Blood Urea Nitrogen 13 mg/dL (6-20); Calcium 8.1 mg/dL (8.5-10.5); Carbon Dioxide 25 mmol/L (22-29); Chloride 108 mmol/L (98-107); Creatinine Clr Calc Pharmacy 119.0889; Glomerular Filtration Rate 103.2 mL/min (90-130); Glucose 146 mg/dL (65-115); Magnesium 1.9 mg/dL (1.7-2.3); Osmolality Calculated 295 mOsm/kg (285-295); Phosphorus 1.8 mg/dL (2.5-4.5); Potassium 3.5 mmol/L (3.5-5.1); Sodium 141 mmol/L (136-145); Total Bilirubin 0.6 mg/dL (0.15-1.2); Total Protein 5.3 g/dL (6.6-8.7)
[2024-07-22] MEDS: LORazepam 1 MG/0.5 ML injection IVP (06:26)
--- NOTE | 2024-07-22 08:57 | P.PN_ITS ---
Subjective 2 Subjective: No acute events overnight. Has remained hemodynamically stable and afebrile. Currently on room air. Vitals/I&O/Wt Last Vital Signs Temp 98.1 F 07/21/24 16:00 Pulse 67 07/22/24 06:00 Resp 18 07/22/24 06:00 BP 120/71 07/22/24 05:00 Pulse Ox 95 07/21/24 22:05 O2 Del Method Room Air 07/20/24 20:23 07/21/24 07/22/24 07/22/24 22:59 06:59 14:59 Intake Total 50 / 1050 50 / 1100 Balance 50 / 1050 50 / 1100 Weight last 48 hrs Weight 70.307 kg Weight 70 kg Weight 71.5 kg Weight 58.967 kg Physical Exam 2 Narrative: General: No acute distress, calm, AAO x 3 HEENT: PERRLA, pupils bilaterally equal and reactive Chest: Normal vesicular breath sounds, no added sounds, equal good air entry bilaterally CVS: S1-S2 regular, no murmurs, no tachycardia, no gallops, no rubs Abdomen: Soft, nontender, no organomegaly, bowel sounds present Neuro: No focal deficits, no facial deformity, AO x3, power 5/5 in all limbs Const: COMMON NORMALS: no acute distress EXAM LIMITATIONS: altered mental status and behavioral limitations GENERAL APPEARANCE: cooperative, comfortable, well developed, disheveled, lethargic, frail appearing and well hydrated NUTRITIONAL APPEARANCE: thin ORIENTATION/CONSCIOUSNESS: Yes lethargic Neuro: SENSORIUM/ORIENTATION: Yes lethargic Data 07/22/24 04:42 07/22/24 04:42 Micro: Microbiology 07/20/24 13:33 Blood Culture - Preliminary Blood NEGATIVE TO DATE 07/20/24 13:33 Blood Culture - Preliminary Blood NEGATIVE TO DATE A&P Assessment and plan (1) Acute psychosis: (2) Sepsis: (3) GEETA (acute kidney injury): (4) Acute dehydration: (5) Rhabdomyolysis: (6) Methamphetamine use disorder, severe: (7) Hyperkalemia: (8) Transaminitis: Plan 49-year-old gentleman with past medical history of amphetamine abuse presents to the ER with psychosis found to have leukocytosis, GEETA, rhabdomyolysis covered in ticks. Leukocytosis: Most likely in setting of dehydration. Less likely infectious in nature. Sepsis: Was present on admission. Since then has been ruled out. DC IV fluids. Patient has good oral intake. Monitor blood pressures. Keep mean artery pressure 65 mmHg. Does have history of IV drug abuse. Follow-up blood culture. UA negative for concerns for UTI. Follow-up MRSA swab negative. DC vancomycin. For now continue with Zosyn while patient is in process being transition to Neuropsych Unit. Continue with oral doxycycline given PICC exposure while tick panel is awaited. Acute kidney injury: Associated with rhabdomyolysis and hyperkalemia on admission. So far resolved. Most likely setting of dehydration. DC fluids as above. Encourage oral intake. CT abdomen and pelvis negative for obstructive nephropathy. Associated with hyperkalemia: Resolved. Acute psychosis: Urine drug screen positive for amphetamines, benzos. On 96-hour hold as per ER. Psych consulted. Haldol as needed. Patient is medically cleared to be transferred to Neuropsych Unit. Transaminitis: Hepatitis panel, HIV negative. Stable. Hypothyroidism: TSH normal. Continue with home dose of levothyroxine. Full code Regular diet Protonix OPD prophylaxis Heparin for DVT prophylaxis. Plan for the day: CMP stable. Afebrile. Leukocytosis resolved. Hold off on any further IV antibiotics. Continue with oral doxycycline. Will consult wound care. Patient stable to be transferred to Neuropsych Unit. PDMP PDMP Reviewed: Not Reviewed Attestations 2 Medical Necessity Statement*: As per primary team. Diagnoses Acute psychosis F23 Sepsis A41.9 GEETA (acute kidney injury) N17.9 Acute dehydration E86.0 Rhabdomyolysis M62.82 Rhabdomyolysis type: non-traumatic Methamphetamine use disorder, severe F15.20 Hyperkalemia E87.5 Transaminitis R74.01
[2024-07-22] MEDS: bacitracin ointment 28 gm 1 APPLIC TOPICAL ×2 (08:59→18:29)
[2024-07-22] MEDS: doxycycline 100 mg Tablet PO ×2 (08:59→18:28)
[2024-07-22] MEDS: docusate sodium 100 mg Capsule PO ×2 (08:59→18:28)
[2024-07-22] MEDS: levothyroxine 150 mcg Tablet 300 MCG PO (08:59)
--- NOTE | 2024-07-22 13:54 | P.CONIM_ITS ---
Providers/Reason For Consult 2 Consulting Physician/Specialty*: Wound care Reason for Consult*: Wounds to bottom of feet Requesting Physician: Dr. Carmichael Attending Physician: Will Zayas MD History of Present Illness History of Present Illness Aidan Rodrigues is a 49 year old male admitted to the hospital on July 21 with a past medical history that includes psychosis, hypothyroidism, and substance abuse. He was brought into the ER due to altered mental status. Blood work revealed rhabdomyolysis, a white blood cell count of 29,000, creatinine 2.1 and found to be covered with multiple ticks all over his body. He was noted to have open wounds on bilateral feet. Wound care was consulted for further treatment recommendations for the open wounds. Wounds were open to air upon entering the room. The patient states he is feeling better today. He is alert and oriented. Multiple scratches and abrasions are noted to bilateral feet. Patient states his truck broke down so he got out and his shoes got wet so he took them off and walked down the side of the road in [facility]. He is currently on doxycycline. Review of Systems 2 General: Reports: 10 or more systems reviewed and unremarkable except in HPI and below Const: Denies: fever(s) or chills Card: Denies: chest pain or palpitations Resp: Denies: dyspnea GI: Denies: abdominal pain Skin/Breast: Reports: sores (Bilateral feet) Medications/Allergies Home Medications ?Medication ?Instructions ?Recorded ?Confirmed ?Last Taken ?Type levothyroxine 300 mcg tablet 300 mcg PO DAILY 30 days #30 tabs 01/19/24 07/20/24 Unknown Rx Allergies Allergy/AdvReac Type Severity Reaction Status Date / Time No Known Allergies Allergy Verified 01/15/24 18:01 Current Medications Generic Name Dose Route Start Last Admin Trade Name Freq PRN Reason Stop Dose Admin Bacitracin 1 applic 07/21/24 18:00 07/22/24 08:59 Bacitracin Ointment 28 Gm TOPICAL 1 applic BID HOLLAND Administration Protocol Docusate Sodium 100 mg 07/20/24 18:00 07/22/24 08:59 Docusate Sodium 100 Mg Capsule PO 100 mg BID HOLLAND Administration Doxycycline Monohydrate 100 mg 07/21/24 18:00 07/22/24 08:59 Doxycycline 100 Mg Tablet PO 07/28/24 17:59 100 mg BID HOLLAND Administration Protocol Haloperidol Lactate 5 mg 05/17/25 23:43 07/20/24 23:59 Haloperidol Inj 5 Mg/Ml Inj 1 Ml IVP 5 mg Q6H PRN Administration AGITATION Heparin Sodium (Porcine) 5,000 unit 07/20/24 15:42 07/22/24 13:29 Heparin 5,000 Unit/Ml Inj 1 Ml SUBCUT Not Given Q12H HOLLAND Levothyroxine Sodium 300 mcg 07/21/24 09:00 07/22/24 08:59 Levothyroxine 150 Mcg Tablet PO 300 mcg DAILY HOLLAND Administration Nicotine Polacrilex 4 mg 07/21/24 16:52 07/21/24 17:35 Nicotine 4 Mg Lozenge MUCOUS MEM 4 mg Q2H PRN Administration NICOTINE CRAVINGS Olanzapine 5 mg 07/20/24 15:42 07/22/24 04:47 Olanzapine 5 Mg Odt PO 5 mg Q4H PRN Administration Agitation/Psychosis PFSH Acute 2 PFSH: Medical History (Updated 07/22/24 @ 16:44 by SOHIELA Rincon) Psychiatric care Methamphetamine abuse No significant past medical history Surgical History History of hernia repair History of carpal tunnel surgery Social History Substance/Drug Use: current Vitals/I&O/Wt Last Vital Signs Temp 98.1 F 07/21/24 16:00 Pulse 72 07/22/24 10:00 Resp 12 07/22/24 10:00 BP 120/71 07/22/24 05:00 Pulse Ox 95 07/21/24 22:05 O2 Del Method Room Air 07/20/24 20:23 07/21/24 07/22/24 07/22/24 22:59 06:59 14:59 Intake Total 50 / 1050 50 / 1100 Balance 50 / 1050 50 / 1100 Weight last 48 hrs Weight 70.307 kg Weight 70 kg Weight 71.5 kg Physical Exam 2 Const: COMMON NORMALS: no acute distress, patient oriented x3 and alert G ENERAL APPEARANCE: cooperative, comfortable and disheveled NUTRITIONAL APPEARANCE: thin ORIENTATION/CONSCIOUSNESS: Yes awake, Yes oriented to person, Yes oriented to place and Yes oriented to time HENMT: HEAD & SCALP: normal to inspection TEETH & GINGIVA: Yes poor dentition Eye: GENERAL EYE: appearance normal, both eyes and all related structures Neck/C-Spine: GENERAL: Yes normal visual inspection and Yes trachea midline Chest: CHEST: Yes Symmetrical chest wall rise Resp: COMMON NORMALS: normal respiratory effort EFFORT & INSPECTION: Yes able to speak in complete sentences and Yes symmetric chest movement Cardio: COMMON NORMALS: regular rate RATE: regular rate PERIPHERAL PULSES: posterior tibial pulses present positive bilateral dopplerable (biphasic) and dorsalis pedis present positive bilateral dopplerable (biphasic) Extremity: COMMON NORMALS: full ROM, capillary refill normal and no clubbing, cyanosis or edema GENERAL: Yes other findings (Multiple scratches and abrasions to bilateral feet) Neuro: COMMON NORMALS: patient oriented x3 SENSORIUM/ORIENTATION: Yes alert, Yes oriented to person, Yes oriented to place and Yes oriented to time SPEECH: speech normal Psych: COMMON NORMALS: cooperative and speech normal ATTITUDE: Yes calm ACTIVITY/MOTOR BEHAVIOR: Yes appropriate eye contact SPEECH: Yes normal speech Skin: WOUNDS: Yes wounds noted (Multiple scratches and abrasions to bilateral feet) Data 07/22/24 04:42 07/22/24 04:42 Micro: Microbiology 07/20/24 13:33 Blood Culture - Preliminary Blood NEGATIVE TO DATE 07/20/24 13:33 Blood Culture - Preliminary Blood NEGATIVE TO DATE A&P Assessment and plan (1) Abrasion of foot or toe: Multiple abrasions to bilateral feet. 3 notable wounds on left great toe, left fourth plantar metatarsal head, and right dorsal foot. Do not appear acutely infected. Feet thoroughly cleansed with soap and water. Patient will benefit from a shower. Biphasic pulses and normal capillary refill noted to bilateral feet. Will recommend mupirocin to wounds twice daily covered with gauze and secured with tape. Wound care will follow-up daily during admission. PDMP PDMP Reviewed: Not Reviewed Consult Attestations 2 Time Spent in Patient Care: 16 - 35 minutes Coding Level of Care Code Acute Code for [facility] Fwd Diagnoses Abrasion of foot or toe S90.819A Wound Assessment Wound Assessment Wound Number 1 Toe Great: Descriptor: Plantar and Left Primary Etiology:: Trauma, Other Length: (cm): 1.5 cm Width: (cm): 1 cm Depth: (cm): 0.1 cm Epithelialization:: None Tunneling:: No Undermining:: No Limited to Skin Breakdown: Yes Exudate Amount:: Small Drainage Type: Serosanguineous Foul Odor After Cleansing:: No Slough/Fibrin?: Yes Granulation Amount: None Necrotic Amount:: Small (1-33%) Necrotic Type:: Adherent Slough Wound Number 2 Metatarsal Head Fourth: Descriptor: Plantar and Left Primary Etiology:: Trauma, Other Length: (cm): 1.5 cm Width: (cm): 1.5 cm Depth: (cm): 0.1 cm SEE PICTURE ABOVE Epithelialization:: None Tunneling:: No Undermining:: No Limited to Skin Breakdown: Yes Exudate Amount:: Small Drainage Type: Serosanguineous Foul Odor After Cleansing:: No Slough/Fibrin?: Yes Granulation Amount: None Necrotic Amount:: Medium (34-66%) Necrotic Type:: Adherent Slough Wound Number 3 Foot: Cluster Wound: Yes Descriptor: Dorsal and Left Primary Etiology:: Trauma, Other Length: (cm): 0.8 cm Width: (cm): 0.8 cm Depth: (cm): 0.1 cm Epithelialization:: None Tunneling:: No Undermining:: No Limited to Skin Breakdown: Yes Exudate Amount:: Medium Drainage Type: Serosanguineous Foul Odor After Cleansing:: No Slough/Fibrin?: Yes Granulation Amount: None Necrotic Amount:: Medium (34-66%) Necrotic Type:: Adherent Slough Wound Orders All Wounds: ALL WOUNDS TO BILATERAL FEET Dressing change frequency: Twice Daily Wound Cleansing: Saline Primary Wound Care Dressing: Mupirocin Secondary Wound Care Dressing: Gauze and tape Bathing/Showering/Hygiene: May shower without wound dressing
[2024-07-22] MEDS: acetaminophen 325 mg Tablet 650 MG PO (17:10)
[2024-07-22] MEDS: nicotine 4 mg lozenge MUCOUS MEM ×2 (17:12→20:40)
--- NOTE | 2024-07-22 17:49 | PC.ADMIT ---
[address] Admission Note:Pt came to us from ICU. He states that he had been clean from meth for approx 6 months and relapsed. He states he is embarassed and feels stupid for choosing to use again and just doesn't understand why he did. He is covered head to toe in scratches and tick bites. He states that he is ready to get sober again and get better. He is reporting pain in his feet and back. I gave tylenol for this. He is pleasant and well manered. He is down to day room for dinner and wanted to shower and clean up after that. The patient,Aidan Rodrigues,49 y/o, was given written information regarding hospital policies, unit procedures and contact persons. Patient's smoking status: . Vital Signs - 8 hr 07/22/24 10:00 07/22/24 17:01 07/22/24 17:02 Temperature 98.1 F 98.1 F Pulse Rate 72 81 81 Respiratory Rate 12 16 16 Blood Pressure 127/78 127/78 Pulse Oximetry 98 98
--- NOTE | 2024-07-22 18:02 | W.PM.NPUPNS ---
Subjective NPU Subjective: Patient presented today reporting that he is doing fine. He reports that this represents a relapse after at least 7 months of sobriety. He reports that it was only a brief slip up but that he was having psychosis and feeling out of my mind. He was noteworthy of having significant cuts on his feet from stripping naked and going through the [place]. He reports that he recalls some aspects of it but does not know why he behaved in that manner. He reports he understands that methamphetamine is not a good idea for him. He reports he still has a job and his has not decided to leave him yet and so he wants to get back to those things sooner rather than later and is not focused on any more intense sober living treatment. He denied any side effects to medication. Mental Status Exam MSE Comments: This is a slender possibly underweight but well-developed white male in hospital gown with limited grooming and adequate eye contact. No abnormal movements. Cooperative with exam in mild distress. Speech was normal rate and volume. Patient mood described as a little better, affect slightly subdued. Thought process, mostly organized. Thought content: patient denies any suicidal or homicidal ideation, no delusions reported or noted, and denies any auditory or visual hallucinations but does acknowledge that there were some perceptual disturbances that led to him coming to the hospital that he now attributes to methamphetamine use. Attention and concentration are intact and memory appears mostly reliable but none were formally tested. He is alert and oriented x 3. Insight and judgment are limited. Impulse control appears limited. Vitals/I&O/Wt Last Vital Signs Temp 98.1 F 07/22/24 20:13 Pulse 68 07/22/24 20:13 Resp 17 07/22/24 20:13 BP 115/76 07/22/24 20:13 Pulse Ox 98 07/22/24 20:13 O2 Del Method Room Air 07/22/24 20:13 Weight last 48 hrs Weight 70.307 kg Data NPU 07/22/24 04:42 07/22/24 04:42 A&P Assessment and plan (1) Acute psychosis: (2) Sibling relational problem: (3) Acute psychosis: (4) Methamphetamine use disorder, severe: Plan This is a 49 year old white male with a long history of trauma and addiction with with past and present history of methamphetamine use with psychotic features with previous hospitalizations with these almost identical issues who started having some perceptual disturbances that led to him being brought to the emergency department and admitted secondary to the psychotic symptoms. 1. Patient transferred to the neuropsychiatric unit. We will continue current medication. 2. Encourage individual, group and milieu therapy 3. Continue q-15 minute check for safety 4. Recommend sober living treatment at the highest level of care to which the patient is willing to commit. 5. Obtain collateral information. 6. Evaluate for safety against the backdrop of the 96-hour hold. PDMP PDMP Reviewed: Not Reviewed Involuntary Hold Information Hold Status: Legal Status: 96 Hour Hold Date/Time Hold Expires: 07/26/24@0001 96 Hour Hold: 96 Hour Involuntary Admission: Yes Other Hold: Hold End Date: 01/22/24 Attestations NPU Medical Necessity Statement*: Inpatient hospitalization is medically necessary and the clinically appropriate intervention at this time. We will monitor/initiate medications and make changes as indicated. Likely length of stay is 2-4 days. Coding Level of Care Code Acute Code for [facility] Fwd Diagnoses Acute psychosis F23 Sibling relational problem Z63.8 Methamphetamine use disorder, severe F15.20
[2024-07-22] MEDS: trazodone 50 mg Tablet PO ×2 (20:33→22:39)
[2024-07-22] MEDS: hyDROXYzine 25 mg Capsule 50 MG PO (20:33)
[2024-07-23 06:00] VITALS: BP 130/80; PULSE 88; RESP 16; TEMP 36.7; O2SAT 98
[2024-07-23] MEDS: nicotine 4 mg lozenge MUCOUS MEM ×4 (06:14→21:05)
[2024-07-23] MEDS: acetaminophen 325 mg Tablet 650 MG PO ×4 (06:14→21:04)
[2024-07-23] MEDS: docusate sodium 100 mg Capsule PO ×2 (08:48→17:21)
[2024-07-23] MEDS: doxycycline 100 mg Tablet PO ×2 (08:48→17:21)
[2024-07-23] MEDS: levothyroxine 150 mcg Tablet 300 MCG PO (08:48)
[2024-07-23] MEDS: bacitracin ointment 28 gm 1 APPLIC TOPICAL ×2 (08:48→17:25)
--- NOTE | 2024-07-23 12:56 | P.PN_ITS ---
Subjective 2 Subjective: Mr. Rodrigues was evaluated in the Neuro-Psych unit today. He is in good spirits and states he will hopefully be discharged home tomorrow. Bandages were clean, dry, and intact upon arrival today. Vitals/I&O/Wt Last Vital Signs Temp 98.0 F 07/23/24 06:00 Pulse 88 07/23/24 06:00 Resp 16 07/23/24 06:00 BP 130/80 07/23/24 06:00 Pulse Ox 98 07/23/24 06:00 O2 Del Method Room Air 07/23/24 06:00 Weight last 48 hrs Weight 70.307 kg Physical Exam 2 Const: COMMON NORMALS: no acute distress, patient oriented x3 and alert G ENERAL APPEARANCE: cooperative and comfortable NUTRITIONAL APPEARANCE: thin ORIENTATION/CONSCIOUSNESS: Yes awake, Yes oriented to person, Yes oriented to place and Yes oriented to time HENMT: HEAD & SCALP: normal to inspection TEETH & GINGIVA: Yes poor dentition Eye: GENERAL EYE: appearance normal, both eyes and all related structures Neck/C-Spine: GENERAL: Yes normal visual inspection and Yes trachea midline Chest: CHEST: Yes Symmetrical chest wall rise Resp: COMMON NORMALS: normal respiratory effort EFFORT & INSPECTION: Yes able to speak in complete sentences and Yes symmetric chest movement Cardio: COMMON NORMALS: regular rate RATE: regular rate Extremity: COMMON NORMALS: full ROM, capillary refill normal and no clubbing, cyanosis or edema GENERAL: Yes other findings (Multiple scratches and abrasions to bilateral feet) Neuro: COMMON NORMALS: patient oriented x3 SENSORIUM/ORIENTATION: Yes alert, Yes oriented to person, Yes oriented to place and Yes oriented to time SPEECH: speech normal Psych: COMMON NORMALS: cooperative and speech normal ATTITUDE: Yes calm ACTIVITY/MOTOR BEHAVIOR: Yes appropriate eye contact SPEECH: Yes normal speech Skin: WOUNDS: Yes wounds noted (Multiple scratches and abrasions to bilateral feet) Data 07/22/24 04:42 07/22/24 04:42 A&P Assessment and plan (1) Abrasion of foot or toe: Wounds appear stable without signs of further decline. No active signs or symptoms of infection. Nursing staff have been applying mupirocin 2 times daily. Patient was able to get a shower. He may shower with his wounds open. Will recommend continuing with mupirocin to wounds twice daily covered with bandage. Once discharged, patient should continue to cleanse wounds, apply mupirocin twice daily at home, and cover with a bandage. If patient is still admitted tomorrow during wound rounds we will follow-up with him. If patient is discharged, wound care follow-up should be scheduled at [facility] wound care. PDMP PDMP Reviewed: Not Reviewed Attestations 2 Medical Necessity Statement*: Time Spent in Patient Care: 16 - 35 minutes Coding Level of Care Code Acute Code for [facility] Fwd Diagnoses Abrasion of foot or toe S90.819A Wound Assessment Wound Assessment Wound Number 1 Toe Great: Descriptor: Plantar and Left Primary Etiology:: Trauma, Other Length: (cm): 1 cm Width: (cm): 1 cm Depth: (cm): 0.1 cm Epithelialization:: Small (1-33%) Tunneling:: No Undermining:: No Limited to Skin Breakdown: Yes Exudate Amount:: Small Drainage Type: Serosanguineous Foul Odor After Cleansing:: No Slough/Fibrin?: Yes Granulation Amount: None Necrotic Amount:: Small (1-33%) Necrotic Type:: Adherent Slough Wound Number 2 Metatarsal Head Fourth: Descriptor: Plantar and Left Primary Etiology:: Trauma, Other Length: (cm): 1 cm Width: (cm): 1 cm Depth: (cm): 0.1 cm Epithelialization:: Small (1-33%) Tunneling:: No Undermining:: No Limited to Skin Breakdown: Yes Exudate Amount:: Small Drainage Type: Serosanguineous Foul Odor After Cleansing:: No Slough/Fibrin?: Yes Granulation Amount: None Necrotic Amount:: Small (1-33%) Necrotic Type:: Adherent Slough Wound Number 3 Foot: Cluster Wound: Yes Descriptor: Dorsal and Left Primary Etiology:: Trauma, Other Length: (cm): 0.8 cm Width: (cm): 2 cm Depth: (cm): 0.1 cm Epithelialization:: None Tunneling:: No Undermining:: No Limited to Skin Breakdown: Yes Exudate Amount:: Small Drainage Type: Serosanguineous Foul Odor After Cleansing:: No Slough/Fibrin?: Yes Granulation Amount: None Necrotic Amount:: Medium (34-66%) Necrotic Type:: Adherent Slough Wound Orders All Wounds: ALL WOUNDS TO BILATERAL FEET Dressing change frequency: Twice Daily Wound Cleansing: Saline Primary Wound Care Dressing: Mupirocin Secondary Wound Care Dressing: Gauze and tape Bathing/Showering/Hygiene: May shower without wound dressing
[2024-07-23 14:00] VITALS: BP 125/76; PULSE 73; RESP 16; O2SAT 98
--- NOTE | 2024-07-23 17:47 | P.NPUPN_ITS ---
Subjective NPU 2 Subjective: Patient presents today reporting that things are going okay. He reports understanding our concern given his erratic behavior which led to physical injuries, exposure to ticks and tickborne illness excetra. He reports he understands needing to avoid use in the future and he reports a plan to continue with [facility] and sober living treatment of that nature. We discussed the likelihood of discharge in the next 48 hours. Mental Status Exam 2 MSE Comments: This is a slender possibly underweight but well-developed white male in hospital gown with limited grooming and adequate eye contact. No abnormal movements. Cooperative with exam in mild distress. Speech was normal rate and volume. Patient mood described as a little better, affect slightly subdued. Thought process, mostly organized. Thought content: patient denies any suicidal or homicidal ideation, no delusions reported or noted, and denies any auditory or visual hallucinations but does acknowledge that there were some perceptual disturbances that led to him coming to the hospital that he now attributes to methamphetamine use. Attention and concentration are intact and memory appears mostly reliable but none were formally tested. He is alert and oriented x 3. Insight and judgment are limited. Impulse control appears limited. Vitals/I&O/Wt Last Vital Signs Temp 98.3 F 07/23/24 22:00 Pulse 75 07/23/24 22:00 Resp 18 07/23/24 22:00 BP 122/90 07/23/24 22:00 Pulse Ox 98 07/23/24 22:00 O2 Del Method Room Air 07/23/24 06:00 Weight last 48 hrs Weight 70.307 kg Data NPU 07/22/24 04:42 07/22/24 04:42 A&P Assessment and plan (1) Acute psychosis: (2) Sibling relational problem: (3) Acute psychosis: (4) Methamphetamine use disorder, severe: Plan This is a 49 year old white male with a long history of trauma and addiction with with past and present history of methamphetamine use with psychotic features with previous hospitalizations with these almost identical issues who started having some perceptual disturbances that led to him being brought to the emergency department and admitted secondary to the psychotic symptoms. 1. Patient transferred to the neuropsychiatric unit. We will continue current medication. 2. Encourage individual, group and milieu therapy 3. Continue q-15 minute check for safety 4. Recommend sober living treatment at the highest level of care to which the patient is willing to commit. 5. Obtain collateral information. 6. Evaluate for safety against the backdrop of the 96-hour hold. PDMP PDMP Reviewed: Not Reviewed Involuntary Hold Information 2 Hold Status: Legal Status: 96 Hour Hold Date/Time Hold Expires: 07/26/2024 @ 0001 96 Hour Hold: 96 Hour Involuntary Admission: Yes Other Hold: Hold End Date: 01/22/24 Attestations NPU 2 Medical Necessity Statement*: Inpatient hospitalization is medically necessary and the clinically appropriate intervention at this time. We will monitor/initiate medications and make changes as indicated. Likely length of stay is 1-3 days. Coding Level of Care Code Acute Code for [facility] Fwd Diagnoses Acute psychosis F23 Sibling relational problem Z63.8 Methamphetamine use disorder, severe F15.20
[2024-07-23] MEDS: OLANZapine 5 mg ODT PO (21:05)
[2024-07-23] MEDS: hyDROXYzine 25 mg Capsule 50 MG PO (21:05)
[2024-07-23 22:00] VITALS: BP 122/90; PULSE 75; RESP 18; TEMP 36.8; O2SAT 98
[2024-07-23] MEDS: haloperidol 5 mg Tablet PO (23:03)
[2024-07-24] MEDS: trazodone 50 mg Tablet PO ×3 (01:01→23:41)
[2024-07-24] MEDS: OLANZapine 5 mg ODT PO ×2 (01:01→22:03)
[2024-07-24 06:00] VITALS: BP 124/97; PULSE 57; RESP 16; TEMP 37; O2SAT 98
[2024-07-24 06:18] LABS: Lyme AB Screen <0.90 index
[2024-07-24] MEDS: doxycycline 100 mg Tablet PO ×2 (08:46→18:30)
[2024-07-24] MEDS: docusate sodium 100 mg Capsule PO ×2 (08:46→18:30)
[2024-07-24] MEDS: levothyroxine 150 mcg Tablet 300 MCG PO (08:46)
[2024-07-24] MEDS: bacitracin ointment 28 gm 1 APPLIC TOPICAL (08:52)
[2024-07-24] MEDS: nicotine 4 mg lozenge MUCOUS MEM ×4 (09:04→22:05)
[2024-07-24] MEDS: hyDROXYzine 25 mg Capsule 50 MG PO ×2 (11:42→18:30)
--- NOTE | 2024-07-24 12:34 | P.PN_ITS ---
Subjective 2 Subjective: Patient was evaluated at bedside in the Neuro-psych Unit today. His dressings are clean dry and intact upon arrival today. Potentially discharging home tomorrow. Vitals/I&O/Wt Last Vital Signs Temp 98.6 F 07/24/24 06:00 Pulse 57 L 07/24/24 06:00 Resp 16 07/24/24 06:00 BP 124/97 07/24/24 06:00 Pulse Ox 98 07/24/24 06:00 O2 Del Method Room Air 07/23/24 06:00 Physical Exam 2 Const: COMMON NORMALS: no acute distress, patient oriented x3 and alert G ENERAL APPEARANCE: cooperative and comfortable NUTRITIONAL APPEARANCE: thin ORIENTATION/CONSCIOUSNESS: Yes awake, Yes oriented to person, Yes oriented to place and Yes oriented to time HENMT: HEAD & SCALP: normal to inspection TEETH & GINGIVA: Yes poor dentition Eye: GENERAL EYE: appearance normal, both eyes and all related structures Neck/C-Spine: GENERAL: Yes normal visual inspection and Yes trachea midline Chest: CHEST: Yes Symmetrical chest wall rise Resp: COMMON NORMALS: normal respiratory effort EFFORT & INSPECTION: Yes able to speak in complete sentences and Yes symmetric chest movement Cardio: COMMON NORMALS: regular rate RATE: regular rate Extremity: COMMON NORMALS: full ROM, capillary refill normal and no clubbing, cyanosis or edema GENERAL: Yes other findings (Multiple scratches and abrasions to bilateral feet) Neuro: COMMON NORMALS: patient oriented x3 SENSORIUM/ORIENTATION: Yes alert, Yes oriented to person, Yes oriented to place and Yes oriented to time SPEECH: speech normal Psych: COMMON NORMALS: cooperative and speech normal ATTITUDE: Yes calm ACTIVITY/MOTOR BEHAVIOR: Yes appropriate eye contact SPEECH: Yes normal speech Skin: WOUNDS: Yes wounds noted (Multiple scratches and abrasions to bilateral feet) Data 07/22/24 04:42 07/22/24 04:42 A&P Assessment and plan (1) Abrasion of foot or toe: Wounds appear slightly improved. No active signs or symptoms of infection. Nursing staff have been applying mupirocin 2 times daily. He may shower with his wounds open. Will recommend continuing with mupirocin to wounds twice daily covered with bandage. Once discharged, patient should continue to cleanse wounds, apply mupirocin twice daily at home, and cover with a bandage. If patient is still admitted tomorrow during wound rounds we will follow-up with him. If patient is discharged, wound care follow-up should be scheduled at [facility] wound care. Wound care referral will be ordered. PDMP PDMP Reviewed: Not Reviewed Attestations 2 Medical Necessity Statement*: Time Spent in Patient Care: 16 - 35 minutes Coding Level of Care Code Acute Code for Chg Fwd Diagnoses Abrasion of foot or toe S90.819A Wound Assessment Wound Assessment Wound Number 1 Toe Great: Descriptor: Plantar and Left Primary Etiology: Trauma, Other Length (cm): 0.6 cm Width (cm): 0.4 cm Depth (cm): 0.1 cm Epithelialization: Small (1-33%) Tunneling: No Undermining: No Limited to Skin Breakdown: Yes Exudate Amount: Small Drainage Type: Serosanguineous Foul Odor After Cleansing: No Slough/Fibrin?: Yes Granulation Amount: None Necrotic Amount: Small (1-33%) Necrotic Type: Adherent Slough Wound Number 2 Metatarsal Head Fourth: Descriptor: Plantar and Left Primary Etiology: Trauma, Other Length (cm): 0.7 cm Width (cm): 0.6 cm Depth (cm): 0.1 cm Epithelialization: Small (1-33%) Tunneling: No Undermining: No Limited to Skin Breakdown: Yes Exudate Amount: Small Drainage Type: Serosanguineous Foul Odor After Cleansing: No Slough/Fibrin?: Yes Granulation Amount: None Necrotic Amount: Small (1-33%) Necrotic Type: Adherent Slough Wound Number 3 Foot: Cluster Wound: Yes Descriptor: Dorsal and Left Primary Etiology: Trauma, Other Length (cm): 0.8 cm Width (cm): 2 cm Depth (cm): 0.1 cm Epithelialization: None Tunneling: No Undermining: No Limited to Skin Breakdown: Yes Exudate Amount: Small Drainage Type: Serosanguineous Foul Odor After Cleansing: No Slough/Fibrin?: Yes Granulation Amount: None Necrotic Amount: Medium (34-66%) Necrotic Type: Adherent Slough Wound Orders All Wounds: ALL WOUNDS TO BILATERAL FEET Dressing change frequency: Twice Daily Wound Cleansing: Saline Primary Wound Care Dressing: Mupirocin Secondary Wound Care Dressing: Gauze and tape Bathing/Showering/Hygiene: May shower without wound dressing
[2024-07-24 14:00] VITALS: BP 112/75; PULSE 81; RESP 17; O2SAT 100
--- NOTE | 2024-07-24 18:17 | P.NPUPN_ITS ---
Subjective NPU 2 Subjective: Patient presented today reporting that things are going fine. He endorsed that in general he feels better and is optimistic about things moving forward. He described the fact that he is still not interested in starting a medication and has had marked improvement in in any psychosis or thought disorder with the absence of methamphetamine in his system. We discussed the likelihood of discharge in the morning. Mental Status Exam 2 MSE Comments: This is a slender possibly underweight but well-developed white male in hospital scrubs with improving grooming and adequate eye contact. No abnormal movements. Cooperative with exam in mild distress. Speech was normal rate and volume. Patient mood described as better, affect slightly subdued. Thought process, mostly organized. Thought content: patient denies any suicidal or homicidal ideation, no delusions reported or noted, and denies any auditory or visual hallucinations but does acknowledge that there were some perceptual disturbances that led to him coming to the hospital that he now attributes to methamphetamine use. Attention and concentration are intact and memory appears mostly reliable but none were formally tested. He is alert and oriented x 3. Insight and judgment are improving. Impulse control appears limited. Vitals/I&O/Wt Last Vital Signs Temp 97.9 F 07/24/24 20:57 Pulse 76 07/24/24 20:57 Resp 17 07/24/24 20:57 BP 115/61 07/24/24 20:57 Pulse Ox 99 07/24/24 20:57 O2 Del Method Room Air 07/24/24 20:57 Data NPU 07/22/24 04:42 07/22/24 04:42 A&P Assessment and plan (1) Acute psychosis: (2) Sibling relational problem: (3) Acute psychosis: (4) Methamphetamine use disorder, severe: Plan This is a 49 year old white male with a long history of trauma and addiction with with past and present history of methamphetamine use with psychotic features with previous hospitalizations with these almost identical issues who started having some perceptual disturbances that led to him being brought to the emergency department and admitted secondary to the psychotic symptoms. 1. Patient transferred to the neuropsychiatric unit. We will continue current medication. 2. Encourage individual, group and milieu therapy 3. Continue q-15 minute check for safety 4. Recommend sober living treatment at the highest level of care to which the patient is willing to commit. 5. Obtain collateral information. 6. Evaluate for safety against the backdrop of the 96-hour hold. PDMP PDMP Reviewed: Not Reviewed Involuntary Hold Information 2 Hold Status: Legal Status: 96 Hour Hold Date/Time Hold Expires: 07/26/2024 @ 0001 96 Hour Hold: 96 Hour Involuntary Admission: Yes Other Hold: Hold End Date: 01/22/24 Attestations NPU 2 Medical Necessity Statement*: Inpatient hospitalization is medically necessary and the clinically appropriate intervention at this time. We will monitor/initiate medications and make changes as indicated. Likely length of stay is 1-2 days. Coding Level of Care Code Acute Code for Chg Fwd Diagnoses Acute psychosis F23 Sibling relational problem Z63.8 Methamphetamine use disorder, severe F15.20
[2024-07-24 20:57] VITALS: BP 115/61; PULSE 76; RESP 17; TEMP 36.6; O2SAT 99
[2024-07-24] MEDS: acetaminophen 325 mg Tablet 650 MG PO (22:04)
[2024-07-24] MEDS: haloperidol 5 mg Tablet PO (23:41)
[2024-07-24] MEDS: TRAMadol 50 mg Tablet PO (23:41)
[2024-07-25 06:00] VITALS: BP 117/77; PULSE 95; RESP 17; TEMP 36.4; O2SAT 98
[2024-07-25] MEDS: docusate sodium 100 mg Capsule PO (08:22)
[2024-07-25] MEDS: levothyroxine 150 mcg Tablet 300 MCG PO (08:22)
[2024-07-25] MEDS: doxycycline 100 mg Tablet PO (08:22)
[2024-07-25] MEDS: bacitracin ointment 28 gm 1 APPLIC TOPICAL (08:32)
--- NOTE | 2024-07-25 10:59 | P.NPUDS_ITS ---
Diagnoses at Discharge Discharge Diagnosis (1) Acute psychosis: Status: Resolved (2) Sibling relational problem: Status: Acute (3) Methamphetamine use disorder, severe: Status: Acute Reason for Visit Reason for Visit: mhe Involuntary Hold Information Hold Status: Legal Status: 96 Hour Hold Date/Time Hold Expires: 07/26/2024 @ 0001 96 Hour Hold: 96 Hour Involuntary Admission: Yes Other Hold: Hold End Date: 01/22/24 Discharge Data Studies Completed and Pending: Completed Studies During Hospitalization Category Date Time Status CT abdomen pelvis wo con [id number] Stat Cat Scan 07/20/24 14:08 Completed CV. echo complete * [id number] Routine Ultrasound 07/20/24 15:42 Completed Pending at discharge Category Date Time Status Blood Culture Sta t Lab 07/20/24 13:33 Results Tick Panel Stat Lab 07/20/24 13:35 Results Radiology Impressions Abdomen/Pelvis CT 07/20/24 14:08 IMPRESSION: No acute findings. Laboratory Results WBC 8.51 10^3/uL (3.2 9-11.43) 07/22/24 04:42 RBC 4.37 10^6/uL (3.8 5-5.65) 07/22/24 04:42 Hgb 12.40 g/dL (11.27 -16.99) 07/22/24 04:42 Hct 38.8 % (37-53) 07/22/24 04:42 MCV 88.8 fl (82-101) 07/22/24 04:42 MCH 28.4 pg (27-33) 07/22/24 04:42 MCHC 32.0 g/dL (30-55) 07/22/24 04:42 RDW 16.0 % (12.1-15.1 ) H 07/22/24 04:42 Plt Count 207 10^3/cmm (157 -399) 07/22/24 04:42 MPV 10.2 fL (7.4-10.4 ) 07/22/24 04:42 Neut % (Auto) 61.0 % 07/22/24 04:42 Lymph % (Auto) 13.0 % 07/22/24 04:42 [place] % (Auto) 11.3 % 07/22/24 04:42 Eos % (Auto) 13.9 % 07/22/24 04:42 Baso % (Auto) 0.6 % 07/22/24 04:42 Neut # (Auto) 5.19 10^3/uL (1.8 -7.7) 07/22/24 04:42 Lymph # (Auto) 1.1 10^3/uL (0.8- 4.8) 07/22/24 04:42 [place] # (Auto) 1.0 10^3/uL (0.2- 0.9) H 07/22/24 04:42 Eos # (Auto) 1.2 10^3/uL (0.0- 0.8) H 07/22/24 04:42 Baso # (Auto) 0.1 10^3/uL (0.0- 0.1) 07/22/24 04:42 Nucleated RBC % (a uto) 0 % 07/22/24 04:42 Nucleated RBCs # 0.0 /100WBC 07/22/24 04:42 Sodium 141 mmol/L (136-1 45) 07/22/24 04:42 Potassium 3.5 mmol/L (3.5-5 .1) 07/22/24 04:42 Chloride 108 mmol/L (98-10 7) H 07/22/24 04:42 Carbon Dioxide 25 mmol/L (22-29) 07/22/24 04:42 Anion Gap 11.5 (5-19) 07/22/24 04:42 BUN 13 mg/dL (6-20) 07/22/24 04:42 Creatinine 0.8 mg/dL (0.7-1. 2) 07/22/24 04:42 GFR Calculation 103.2 mL/min (90- 130) 07/22/24 04:42 Glucose 146 mg/dL (65-115 ) H 07/22/24 04:42 Estimat Average Gl ucose 114 07/20/24 11:09 Hemoglobin A1c 5.6 % (4.0-6.0) 07/20/24 11:09 Calculated Osmolal ity 295 mOsm/kg (285- 295) 07/22/24 04:42 Lactic Acid 1.4 mmol/L (0.5-2 .2) 07/20/24 13:35 Calcium 8.1 mg/dL (8.5-10 .5) L 07/22/24 04:42 Phosphorus 1.8 mg/dL (2.5-4. 5) L 07/22/24 04:42 Magnesium 1.9 mg/dL (1.7-2. 3) 07/22/24 04:42 Iron 196 ug/dL (59-158 ) H 07/20/24 11:09 TIBC 329 mcg/dl 07/20/24 11:09 % Saturation 59.5 % (20-50) H 07/20/24 11:09 Unsat Iron Binding 133 ug/dL (112-34 7) 07/20/24 11:09 Total Bilirubin 0.6 mg/dL (0.15-1 .2) 07/22/24 04:42 AST 121 U/L (0-40) H 07/22/24 04:42 ALT 137 U/L (0-41) H 07/22/24 04:42 Alkaline Phosphata se 90 U/L (40-130) 07/22/24 04:42 Creatine Kinase 1230 U/L (39-308) H* 07/20/24 11:09 Total Protein 5.3 g/dL (6.6-8.7 ) L 07/22/24 04:42 Albumin 3.3 g/dL (3.5-5.2 ) L 07/22/24 04:42 Globulin 2.0 g/dL (1.3-4.6 ) 07/22/24 04:42 Triglycerides 78 mg/dL (0-150) 07/21/24 08:14 Cholesterol 145 mg/dL (0-200) 07/21/24 08:14 LDL Cholesterol, C alc 67 mg/dL (50-129) 07/21/24 08:14 HDL Cholesterol 62 mg/dL (60-100) 07/21/24 08:14 LDL/HDL Ratio 1.08 RATIO (0.00- 3.22) 07/21/24 08:14 Cholesterol/HDL Ra smooth 2.34 mg/dL (1.0-5 .00) 07/21/24 08:14 Vitamin B12 1194 pg/mL (232-1 245) 07/20/24 11:09 Folate 11.2 ng/mL (4.5-3 2.2) 07/21/24 08:14 Procalcitonin 0.71 ng/mL (0-0.5 ) H 07/21/24 08:14 TSH 1.14 uIU/mL (0.27 -4.20) 07/20/24 11:09 Urine Color Yellow (Yellow) 07/20/24 16:42 Urine Appearance Cloudy (CLEAR) A 07/20/24 16:42 Urine pH 5.5 (5-7) 07/20/24 16:42 Ur Specific Gravit y 1.021 (1.005-1.0 30) 07/20/24 16:42 Urine Protein 1+ (Negative) A 07/20/24 16:42 Urine Glucose (UA) Negative (Normal ) 07/20/24 16:42 Urine Ketones 2+ (Negative) H 07/20/24 16:42 Urine Blood 2+ (Negative) A 07/20/24 16:42 Urine Nitrate Negative (Negati ve) 07/20/24 16:42 Urine Bilirubin Negative (Negati ve) 07/20/24 16:42 Urine Urobilinogen 1.0 mg/dL (Negati ve) 07/20/24 16:42 Ur Leukocyte Jennifer ase Negative (Negati ve) 07/20/24 16:42 Urine RBC 6-10 /hpf (0-2) 07/20/24 16:42 Urine WBC 0-4 /hpf (0-5) H 07/20/24 16:42 Ur Squamous Epith Cells 0-5 /hpf (0-5) 07/20/24 16:42 Amorphous Sediment Not Reportable 07/20/24 16:42 Urine Bacteria None seen /hpf (N ONE) 07/20/24 16:42 Hyaline Casts 48.80 /lpf 07/20/24 16:42 Coarse Granular Ca sts 0-4 /lpf H 07/20/24 16:42 Urine Mucus 1+ /hpf 07/20/24 16:42 Urine Sperm 1+ /hpf 07/20/24 16:42 Ur Random Sodium 56 mmol/L 07/20/24 16:42 Ur Random Potassiu m 59 mmol/L 07/20/24 16:42 Ur Random Chloride 55 mmol/L 07/20/24 16:42 Nasal MRSA (PCR) Not detected (Ne gative) 07/20/24 20:02 Salicylates 0.9 mg/dL (3-10) L 07/20/24 11:09 Urine Opiates Scre en Negative ng/mL (N egative) 07/20/24 16:42 Acetaminophen < 5.0 ug/mL (10-3 0) L 07/20/24 11:09 Ur Barbiturates Sc reen Negative ng/mL (N egative) 07/20/24 16:42 Ur Phencyclidine S crn Negative ng/mL (N egative) 07/20/24 16:42 Ur Amphetamines Sc reen Positive ng/mL (N egative) H 07/20/24 16:42 U Benzodiazepines Scrn Positive ng/mL (N egative) H 07/20/24 16:42 Urine Cocaine Scre en Negative ng/mL (N egative) 07/20/24 16:42 U Marijuana (THC) Screen Negative ng/mL (N egative) 07/20/24 16:42 Ethyl Alcohol < 10 mg/dL (0-10) 07/20/24 11:09 Lyme Ab (Western B lot) <0.90 index 07/20/24 13:35 Hepatitis A IgM Ab Non-reactive (No nreactive) 07/20/24 11:09 Hep Bs Antigen Non-reactive (No nreactive) 07/20/24 11:09 Hep Bs Antibody < 3.5 (11.5-1000 ) L 07/20/24 11:09 Hep B Core Total A b Non-reactive (No nreactive) 07/20/24 11:09 Hepatitis C Antibo dy Non-reactive (No nreactive) 07/20/24 11:09 HIV 1&2 Ab & HIV 1 Ag Non-reactive (No n-Reactiv) 07/20/24 11:09 HIV 1&2 Antibody Non-reactive (No n-Reactiv) 07/20/24 11:09 Vitals: Last Vital Signs Temp 97.6 F 07/25/24 06:00 Pulse 95 07/25/24 06:00 Resp 17 07/25/24 06:00 BP 117/77 07/25/24 06:00 Pulse Ox 98 07/25/24 06:00 O2 Del Method Room Air 07/25/24 06:00 Discharge Plan Discharge Patient Disposition: Home Condition: Stable Prescriptions: New olanzapine 5 mg Tablet,Disintegrating 5 mg PO Q4H PRN (Reason: Agitation/Psychosis) 30 Days Qty: 30 1RF trazodone 50 mg Tablet 50 mg PO BEDTIME PRN (Reason: Insomnia) 30 Days Qty: 30 1RF Continued levothyroxine 300 mcg tablet 300 mcg PO DAILY 30 Days Qty: 30 1RF Discharge Orders: Discharge Order (Routine); Ordered 07/25/24 Ordered By: Will Zayas Referrals: Counselor-Ifeoma Manzano [Other] - 07/25/24 12:30 pm [facility] [Outside] - 07/25/24 Referral Note: Continue Outpatient services Ashley Rush FNP [Nurse Practitioner, Wound Care] - 08/01/24 2:30 pm Referral Note: Please arrive 15 minutes early for paperwork. Discharge Diet: Regular Discharge Activity: Resume usual activity Patient Instructions: Opioid Safety Activity Restrictions/Additional Instructions: Wound Orders All Wounds: ALL WOUNDS TO BILATERAL FEET Dressing change frequency: Twice Daily Wound Cleansing: Cleanse with saline and gauze Primary Wound Care Dressing: Apply a thin layer of Mupirocin Secondary Wound Care Dressing: Secure with gauze and tape or bandaids Bathing/Showering/Hygiene: May shower without wound dressing Discharge Attestations NPU Time Spent in Discharge Care*: less than 30 min Specific Discharge Activities: Specific discharge activities: educating patient, discussing with leather case finisher/social workers/dc planners, documenting/other paperwork and evaluating patient/reviewing data Coding Level of Care Code Acute Code for Chg Fwd Diagnoses Acute psychosis F23 Sibling relational problem Z63.8 Methamphetamine use disorder, severe F15.20
[2024-07-25 11:16] VITALS: BP 117/77; PULSE 95; RESP 17; TEMP 36.4; O2SAT 98
[2024-07-30 20:59] LABS: E. Chaffeensis AB IGG <1:64; E. Chaffeensis AB IGM <1:20
== END 2024-07-25 12:21 | disposition home or self-care (01) | DRG 872 ==
LOC: ER 13:17 → ER IP 16:45 → ICU 16:48 → NP 07-22 16:36
PROVIDERS: Admitting Provider Student in an Organized Health Care Education/Training Program; Emergency Provider Emergency Medicine; Visit Provider Psychiatry & Neurology Psychiatry
DX: A41.9 Sepsis, unspecified organism (principal); F23 Brief psychotic disorder; F15.20 Other stimulant dependence, uncomplicated; N17.9 Acute kidney failure, unspecified; M62.82 Rhabdomyolysis; E86.0 Dehydration; E03.9 Hypothyroidism, unspecified; E87.5 Hyperkalemia; S90.811A Abrasion, right foot, initial encounter; S90.812A Abrasion, left foot, initial encounter
CPT/HCPCS: 36415; 74176; 80048; 80053; 80061; 80306; 80307; 81001; 82436; 82550; 82607; 82746; 83036; 83540; 83550; 83605; 83735; 84100; 84133; 84145; 84300; 84443; 85025; 86403; 86618; 86666; 86705; 86706; 86709; 86757; 86803; 87040; 87340; 87806; 93306; 94664; 96365; 96366; 96367; 96372; 96374; 96375; 96376; 97150; 97165; 99285; 99291; J0612; J1630; J1644; J2060; J2270; J2470; J2543; J3486; J7030; J7060; J9999

== ENCOUNTER 2024-10-24 03:08 | Emergency (ER) | payer BC, MEDICAID, SELFPAY ==
[2024-10-24 03:13] VITALS: BP 129/97; PULSE 108; RESP 19; TEMP 37.8; O2SAT 96; BMI 21.7
--- OUTSIDE RECORDS SUMMARY | 2024-10-24 03:17 | XMS_ITS | Clinical Summary ---
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 Active gabapentin (NEURONTIN) 300 mg capsule Take [...] 36.8 C (98.2 F) 04/04/2013 3:15 PM AVIONICS SYSTEMS ENGINEER Respiratory Rate 16 04/04/2013 3:15 PM AVIONICS SYSTEMS ENGINEER Oxygen Saturation 98% 04/04/2013 3:15 PM AVIONICS SYSTEMS ENGINEER Inhaled Oxygen Concentration - - Weight 96.6 [...] Q 5 years 2021 INFLUENZA VACCINE (#1) [address] [place] [address] [place] [id number] Advance Directives For more information, please contact: [phone] * Full Code (Latest Code Status on File) Date Activated Date Inactivated Comments 04/04/2013 10:36 AM 04/04/2013 5:43 PM Care Teams Smoke Eater Relationship Specialty Start Date End Date Sanket Gardner MD PCP - General Internal Medicine 03/22/13
--- NOTE | 2024-10-24 03:26 | ECG_ITS ---
[facility] Date: 2024-10-24 Pat Name: Aidan Rodrigues Department: Room: Gender: Male Commercial Relationship Manager: : 1975 Requested By: Naseem Mcneill Order Number: [id number] Murray MD: Carlos Pena M.D. Measurements Intervals [place] Rate: 118 P: 74 [place]: 144 QRS: 81 QRSD: 100 T: -30 QT: 331 QTc: 465 Interpretive Statements SINUS TACHYCARDIA POSSIBLE LEFT ATRIAL ENLARGEMENT [-0.1mV P-WAVE IN V1/V2] ST DEVIATION AND MODERATE T-WAVE ABNORMALITY, CONSIDER INFERIOR ISCHEMIA [-0.1+ mV T-WAVE IN II/aVF] INTERPRETATION BASED ON A DEFAULT AGE OF 40 YEARS Compared to ECG 02/26/2023 12:35:41 T-wave abnormality now present Possible ischemia now present Sinus rhythm no longer present Electronically Signed On 10-26-2024 08:48:46 CDT by Carlos Pena M.D. [email or web address]
[2024-10-24 03:55] LABS: Hematocrit 45.4 % (37-53); Hemoglobin 15.70 g/dL (11.27-16.99); Mean Corpuscular HGB Conc 34.6 g/dL (30-55); Mean Corpuscular Hemoglobin 29.0 pg (27-33); Mean Corpuscular Volume 83.9 fl (82-101); Nucleated Red Blood Cells % 0 %; Platelet Count 381 10^3/cmm (157-399); Red Blood Count 5.41 10^6/uL (3.85-5.65); White Blood Count 22.53 10^3/uL (3.29-11.43)
--- NOTE | 2024-10-24 03:59 | W.ED.PSYCHS ---
HPI - Psych General: Chief Complaint: Psychiatric Symptoms Stated Complaint: AMS Time Seen by Provider: 10/24/24 03:25 History of Present Illness: This patient is a 49-year-old white male who presents to the emergency department for evaluation of altered mental status. Patient was brought in by his . She is concerned that he is getting psychotic again. He has been using drugs. He admits to using cocaine and methamphetamine. Patient does not want to be here. He states he is not homicidal or suicidal. Associated symptoms: Deny auditory hallucinations, visual hallucinations, delusions, homicidal ideation or suicidal ideation Related Data Previous Rx's ?Medication ?Instructions ?Recorded levothyroxine 300 mcg tablet 300 mcg PO DAILY 30 days #30 tabs 07/25/24 olanzapine 5 mg disintegrating 5 mg PO Q4H PRN 07/25/24 tablet Agitation/Psychosis 30 days #30 tabs trazodone 50 mg tablet 50 mg PO BEDTIME PRN Insomnia 30 07/25/24 days #30 tabs Allergies Allergy/AdvReac Type Severity Reaction Status Date / Time No Known Allergies Allergy Verified 10/24/24 03:28 Review of Systems General: Reports: 10 or more systems reviewed and unremarkable except in HPI and below Psych: Reports: anxiety; Denies: visual hallucinations, auditory hallucinations, suicidal ideation or homicidal ideation [facility] ED PFSH: Medical History (Updated 10/24/24 @ 03:59 by Naseem Mcneill MD) Psychiatric care Methamphetamine abuse No significant past medical history Surgical History History of hernia repair History of carpal tunnel surgery Social History Substance/Drug Use: current Physical Exam Const: COMMON NORMALS: no acute distress, patient oriented x3 and no limitations GENERAL APPEARANCE: cooperative and comfortable HENMT: COMMON NORMALS: normocephalic, atraumatic, Normal nasal mucous membranes and turbinates present, moist oral mucous membranes and oropharynx normal HEAD & SCALP: normal to inspection, normocephalic and atraumatic FACE & SINUS: normal facial exam NOSE: Normal nasal mucous membranes and turbinates present Eye: COMMON NORMALS: Equal, round and reactive pupils present, EOMs intact bilaterally and conjunctivae normal GENERAL EYE: appearance normal, both eyes and all related structures CONJUNCTIVA: Yes conjunctivae normal PUPIL: Yes Equal, round and reactive pupils present Neck/C-Spine: COMMON NORMALS: supple and no JVD Chest: COMMONS NORMALS: normal inspection of the chest Resp: COMMON NORMALS: normal respiratory effort and clear to auscultation bilaterally AUSCULTATION: clear to auscultation bilaterally Cardio: COMMON NORMALS: no JVD, regular rate, regular rhythm, No gallops present (Cardio), No murmurs present (Cardio) and No rub (Cardio) RATE: regular rate RHYTHM: regular rhythm GI: COMMON NORMALS: Normal to inspection, nondistended, normoactive bowel sounds present, Soft to palpation and non-tender AUSCULTATION: Yes normoactive bowel sounds PALPATION: Yes Soft to palpation : COMMON NORMALS: Yes no CVA tenderness BLADDER/KIDNEY EXAM: Yes no CVA tenderness Back/Pelvis: COMMON NORMALS: no CVA tenderness and thoracic and lumbar spine normal to inspection Extremity: COMMON NORMALS: normal to inspection Neuro: COMMON NORMALS: patient oriented x3 and CN's II-XII intact bilaterally Psych: COMMON NORMALS: cooperative and speech normal APPEARANCE: Yes unkempt ATTITUDE: Yes engaged ACTIVITY/MOTOR BEHAVIOR: Yes fidgeting and Yes hyperactivity SPEECH: Yes normal speech THOUGHT PROCESS: Perseverating thought process present THOUGHT CONTENT: No Suicidality present, No Homicidality present, No delusions and No Hallucination(s) present ATTENTION/CONCENTRATION: Yes attention grossly intact MEMORY/COGNITION: Yes memory grossly intact Skin: COMMON NORMALS: no rashes or lesions noted, turgor normal and no jaundice GENERAL SKIN EXAM: no rashes or lesions noted and turgor normal Course Vital Signs: Vital signs: Vital Signs Temperature 100.1 F H 10/24/24 03:13 Pulse Rate 108 H 10/24/24 03:13 Respiratory Rate 19 H 10/24/24 03:13 Blood Pressure 129/97 10/24/24 03:13 Pulse Oximetry 96 10/24/24 03:13 Oxygen Delivery Me thod Room Air 10/24/24 03:13 MDM - Psych Medical Decision Making Patient refuses to stay. He is not suicidal or homicidal. He is hyperactive likely secondary to recent drug use but does not appear to be psychotic at this time. Patient signed out AGAINST MEDICAL ADVICE. Lab Data 10/24/24 03:50 10/24/24 03:50 Laboratory Results WBC 22.53 10^3/uL (3.29-11.43) H 10/24/24 03:50 RBC 5.41 10^6/uL (3.85-5.65) 10/24/24 03:50 Hgb 15.70 g/dL (11.27-16.99) 10/24/24 03:50 Hct 45.4 % (37-53) 10/24/24 03:50 MCV 83.9 fl (82-101) 10/24/24 03:50 MCH 29.0 pg (27-33) 10/24/24 03:50 MCHC 34.6 g/dL (30-55) 10/24/24 03:50 RDW 13.2 % (12.1-15.1) 10/24/24 03:50 Plt Count 381 10^3/cmm (157-399) 10/24/24 03:50 MPV 9.8 fL (7.4-10.4) 10/24/24 03:50 Neut % (Auto) 77.6 % 10/24/24 03:50 Lymph % (Auto) 6.8 % 10/24/24 03:50 [place] % (Auto) 14.9 % 10/24/24 03:50 Eos % (Auto) 0.0 % 10/24/24 03:50 Baso % (Auto) 0.3 % 10/24/24 03:50 Neut # (Auto) 17.49 10^3/uL (1.8-7.7) H 10/24/24 03:50 Lymph # (Auto) 1.5 10^3/uL (0.8-4.8) 10/24/24 03:50 [place] # (Auto) 3.4 10^3/uL (0.2-0.9) H 10/24/24 03:50 Eos # (Auto) 0.0 10^3/uL (0.0-0.8) 10/24/24 03:50 Baso # (Auto) 0.1 10^3/uL (0.0-0.1) 10/24/24 03:50 Nucleated RBC % (auto) 0 % 10/24/24 03:50 Nucleated RBCs # 0.0 /100WBC 10/24/24 03:50 No radiology studies performed this visit Discharge Plan Discharge Patient Disposition: Left Against Medical Advice Clinical Impression: Drug abuse Condition: Stable Prescriptions: No Action olanzapine 5 mg Tablet,Disintegrating 5 mg PO Q4H PRN (Reason: Agitation/Psychosis) 30 Days Qty: 30 1RF trazodone 50 mg Tablet 50 mg PO BEDTIME PRN (Reason: Insomnia) 30 Days Qty: 30 1RF levothyroxine 300 mcg tablet 300 mcg PO DAILY 30 Days Qty: 30 1RF Print Language: French Coding Level of Care Code ED Bar Machine Operator Multiple Spindle for Gianfranco Britton
[2024-10-24 04:27] LABS: Alanine Aminotransferase 28 U/L (0-41); Albumin Level 4.8 g/dL (3.5-5.2); Alkaline Phosphatase 122 U/L (40-130); Anion Gap 28.2 (5-19); Aspartate Amino Transferase 60 U/L (0-40); Blood Urea Nitrogen 41 mg/dL (6-20); Calcium 9.0 mg/dL (8.5-10.5); Carbon Dioxide 21 mmol/L (22-29); Chloride 87 mmol/L (98-107); Creatinine Clr Calc Pharmacy 24.2707; Globulin 3.0 g/dL (1.3-4.6); Glucose 142 mg/dL (65-115); Osmolality Calculated 287 mOsm/kg (285-295); Potassium 4.2 mmol/L (3.5-5.1); Sodium 132 mmol/L (136-145); Thyroid Stimulating Hormone 1.83 uIU/mL (0.27-4.20); Total Protein 7.8 g/dL (6.6-8.7)
--- NOTE | 2024-10-24 04:28 | W.ED.PSYCHS ---
HPI - Psych General: Chief Complaint: Psychiatric Symptoms Stated Complaint: AMS Time Seen by Provider: 10/24/24 03:25 History of Present Illness: n Related Data Previous Rx's ?Medication ?Instructions ?Recorded levothyroxine 300 mcg tablet 300 mcg PO DAILY 30 days #30 tabs 07/25/24 olanzapine 5 mg disintegrating 5 mg PO Q4H PRN 07/25/24 tablet Agitation/Psychosis 30 days #30 tabs trazodone 50 mg tablet 50 mg PO BEDTIME PRN Insomnia 30 07/25/24 days #30 tabs Allergies Allergy/AdvReac Type Severity Reaction Status Date / Time No Known Allergies Allergy Verified 10/24/24 03:28 [facility] ED PFSH: Medical History (Updated 10/24/24 @ 03:59 by Naseem Mcneill MD) Psychiatric care Methamphetamine abuse No significant past medical history Surgical History History of hernia repair History of carpal tunnel surgery Social History Substance/Drug Use: current Course Vital Signs: Vital signs: Vital Signs Temperature 100.1 F H 10/24/24 03:13 Pulse Rate 108 H 10/24/24 03:13 Respiratory Rate 19 H 10/24/24 03:13 Blood Pressure 129/97 10/24/24 03:13 Pulse Oximetry 96 10/24/24 03:13 Oxygen Delivery Me thod Room Air 10/24/24 03:13 MDM - Psych Medical Decision Making This is an addendum to the previous ER record. After the patient left labs did come back with the blood we sent to the lab. His white count is 22.5. I did contact his Tegan and recommended she try to convince him to come back to complete the workup. She had left for home. Patient evidently walked out of the ER. Lab Data 10/24/24 03:50 10/24/24 03:50 Laboratory Results WBC 22.53 10^3/uL (3.29-11.43) H 10/24/24 03:50 RBC 5.41 10^6/uL (3.85-5.65) 10/24/24 03:50 Hgb 15.70 g/dL (11.27-16.99) 10/24/24 03:50 Hct 45.4 % (37-53) 10/24/24 03:50 MCV 83.9 fl (82-101) 10/24/24 03:50 MCH 29.0 pg (27-33) 10/24/24 03:50 MCHC 34.6 g/dL (30-55) 10/24/24 03:50 RDW 13.2 % (12.1-15.1) 10/24/24 03:50 Plt Count 381 10^3/cmm (157-399) 10/24/24 03:50 MPV 9.8 fL (7.4-10.4) 10/24/24 03:50 Neut % (Auto) 77.6 % 10/24/24 03:50 Lymph % (Auto) 6.8 % 10/24/24 03:50 Arroyo % (Auto) 14.9 % 10/24/24 03:50 Eos % (Auto) 0.0 % 10/24/24 03:50 Baso % (Auto) 0.3 % 10/24/24 03:50 Neut # (Auto) 17.49 10^3/uL (1.8-7.7) H 10/24/24 03:50 Lymph # (Auto) 1.5 10^3/uL (0.8-4.8) 10/24/24 03:50 Arroyo # (Auto) 3.4 10^3/uL (0.2-0.9) H 10/24/24 03:50 Eos # (Auto) 0.0 10^3/uL (0.0-0.8) 10/24/24 03:50 Baso # (Auto) 0.1 10^3/uL (0.0-0.1) 10/24/24 03:50 Nucleated RBC % (auto) 0 % 10/24/24 03:50 Nucleated RBCs # 0.0 /100WBC 10/24/24 03:50 Potassium 4.2 mmol/L (3.5-5.1) 10/24/24 03:50 Calculated Osmolality 287 mOsm/kg (285-295) 10/24/24 03:50 Calcium 9.0 mg/dL (8.5-10.5) 10/24/24 03:50 Total Bilirubin 0.4 mg/dL (0.15-1.2) 10/24/24 03:50 ALT 28 U/L (0-41) 10/24/24 03:50 Alkaline Phosphatase 122 U/L (40-130) 10/24/24 03:50 Total Protein 7.8 g/dL (6.6-8.7) 10/24/24 03:50 Albumin 4.8 g/dL (3.5-5.2) 10/24/24 03:50 Globulin 3.0 g/dL (1.3-4.6) 10/24/24 03:50 TSH 1.83 uIU/mL (0.27-4.20) 10/24/24 03:50 No radiology studies performed this visit Discharge Plan Discharge Patient Disposition: Left Against Medical Advice Clinical Impression: Drug abuse Condition: Stable Prescriptions: No Action olanzapine 5 mg Tablet,Disintegrating 5 mg PO Q4H PRN (Reason: Agitation/Psychosis) 30 Days Qty: 30 1RF trazodone 50 mg Tablet 50 mg PO BEDTIME PRN (Reason: Insomnia) 30 Days Qty: 30 1RF levothyroxine 300 mcg tablet 300 mcg PO DAILY 30 Days Qty: 30 1RF Print Language: Kinyarwanda Coding Level of Care Code ED Beam Builder Helper for Gianfranco Britton
--- NOTE | 2024-10-24 04:29 | PC.NURSE ---
PT left AMA after speaking with MD. Pts WBC came back at a critical level. This nurse is attempting to contact family to bring him back in for treatment.
[2024-10-24 04:30] LABS: Acetaminophen < 5.0 ug/mL (10-30); Alcohol Level < 10 mg/dL (0-10); Salicylate < 0.3 mg/dL (3-10)
--- NOTE | 2024-10-24 04:35 | PC.NURSE ---
This nurse attempted to locate pt in waiting room and parking lot. This nurse spoke with to advise pt to come back in for further evaluation.
== END 2024-10-24 03:57 | disposition left against medical advice (07) ==
PROVIDERS: Emergency Provider Emergency Medicine
DX: Z53.21 Procedure and treatment not carried out due to patient leaving prior to being seen by health care provider (principal); F14.90 Cocaine use, unspecified, uncomplicated; F15.90 Other stimulant use, unspecified, uncomplicated
CPT/HCPCS: 80053; 80307; 84443; 85025; 93005; 99284

== ENCOUNTER 2024-10-24 05:10 | Inpatient (IN) | payer BC, MEDICAID, SELFPAY ==
[2024-10-24] VITALS (29 sets, daily range): BP systolic 96–159; BP diastolic 44–104; PULSE 63–117; RESP 16–23; TEMP 36.8–36.9; O2SAT 90–97; BMI 21.7
--- OUTSIDE RECORDS SUMMARY | 2024-10-24 05:22 | XMS_ITS | Clinical Summary ---
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 Active gabapentin (NEURONTIN) 300 mg capsule Take [...] 36.8 C (98.2 F) 04/04/2013 3:15 PM [employer]OL AND DIE REPAIR Respiratory Rate 16 04/04/2013 3:15 PM [employer]OL AND DIE REPAIR Oxygen Saturation 98% 04/04/2013 3:15 PM TOOL AND DIE REPAIR Inhaled Oxygen Concentration - - Weight 96.6 [...] 2021 INFLUENZA VACCINE (#1) 2024 [place] [id number] [place] [id number] Advance Directives For more information, please contact: [phone] * Full Code (Latest Code Status on File) Date Activated Date Inactivated Comments 04/04/2013 10:36 AM 04/04/2013 5:43 PM Care Teams Employee Relations Advisor Relationship Specialty Start Date End Date Sanket Gardner MD PCP - General Internal Medicine 03/22/13
--- NOTE | 2024-10-24 05:39 | ED_ITS ---
HPI - General Adult General: Stated complaint: Abnormal labs Time Seen by Provider: 10/24/24 05:30 History of Present Illness: This patient is a 49-year-old white male who is here about an hour ago for evaluation of altered mental status. His had brought him in. The patient had refused care and left AGAINST MEDICAL ADVICE. We had drawn labs which were ordered and sent to the lab. I did see the patient's white count was 22,000 and he is in acute renal failure. I contacted his and asked her to convince him to return for further evaluation and treatment. Patient continues to refuse care however I do not think he is in the right state of mind to be making medical decisions for himself. I do think he is under the influence of drugs. Related Data Previous Rx's ?Medication ?Instructions ?Recorded levothyroxine 300 mcg tablet 300 mcg PO DAILY 30 days #30 tabs 07/25/24 olanzapine 5 mg disintegrating 5 mg PO Q4H PRN 5 tablet Agitation/Psychosis 30 days #30 tabs trazodone 50 mg tablet 50 mg PO BEDTIME PRN Insomni a 30 07/25/24 days #30 tabs Allergies Allergy/AdvReac Type Severity Reaction Status Date / Time No Known Allergies Allergy Verified 10/24/24 03:28 Review of Systems General: Reports: ROS unobtainable due to mental status PFS ED PFSH: Medical History (Updated 10/24/24 @ 03:59 by Naseem Mcneill MD) Psychiatric care Methamphetamine abuse No significant past medical history Surgical History History of hernia repair History of carpal tunnel surgery Social History Substance/Drug Use: current Physical Exam Const: COMMON NORMALS: patient oriented x3 OTHER: Patient is agitated and hyperactive. HENMT: COMMON NORMALS: normocephalic, atraumatic, Normal nasal mucous membranes and turbinates present, moist oral mucous membranes and oropharynx normal HEAD & SCALP: normal to inspection, normocephalic and atraumatic FACE & SINUS: normal facial exam NOSE: Normal nasal mucous membranes and turbinates present Eye: COMMON NORMALS: Equal, round and reactive pupils present, EOMs intact bilaterally and conjunctivae normal GENERAL EYE: appearance normal, both eyes and all related structures CONJUNCTIVA: Yes conjunctivae normal PUPIL: Yes Equal, round and reactive pupils present Neck/C-Spine: COMMON NORMALS: supple and no JVD Chest: COMMONS NORMALS: normal inspection of the chest Resp: COMMON NORMALS: normal respiratory effort and clear to auscultation bilaterally AUSCULTATION: clear to auscultation bilaterally Cardio: COMMON NORMALS: no JVD, regular rate, regular rhythm, No gallops present (Cardio), No murmurs present (Cardio) and No rub (Cardio) RATE: regular rate RHYTHM: regular rhythm GI: COMMON NORMALS: Normal to inspection, nondistended, normoactive bowel sounds present, Soft to palpation and non-tender AUSCULTATION: Yes normoactive bowel sounds PALPATION: Yes Soft to palpation : COMMON NORMALS: Yes no CVA tenderness BLADDER/KIDNEY EXAM: Yes no CVA tenderness Back/Pelvis: COMMON NORMALS: no CVA tenderness and thoracic and lumbar spine normal to inspection Extremity: COMMON NORMALS: normal to inspection Neuro: COMMON NORMALS: patient oriented x3 and CN's II-XII intact bilaterally Psych: COMMON NORMALS: mental status grossly normal, Normal thought process present and cooperative THOUGHT PROCESS: Normal thought process present Skin: COMMON NORMALS: no rashes or lesions noted, turgor normal and no jaundice GENERAL SKIN EXAM: no rashes or lesions noted and turgor normal [facility] - General Adult Medical Decision Making CBC revealed a white blood cell count of 22.5. CMP revealed a BUN of 41 creatinine of 4.1. Acetaminophen and salicylate levels negative. Blood alcohol level 0. Urine analysis is pending. Urine drug screen pending. I did order 1 L bolus of normal saline. I did place the patient under 96-hour hold. I discussed the case with Dr. Montaño. He is coming to the emergency department to evaluate the patient. Patient will be admitted. No radiology studies performed this visit Discharge Plan Discharge Condition: Stable Prescriptions: No Action olanzapine 5 mg Tablet,Disintegrating 5 mg PO Q4H PRN (Reason: Agitation/Psychosis) 30 Days Qty: 30 1RF trazodone 50 mg Tablet 50 mg PO BEDTIME PRN (Reason: Insomnia) 30 Days Qty: 30 1RF levothyroxine 300 mcg tablet 300 mcg PO DAILY 30 Days Qty: 30 1RF Print Language: Welsh Coding Level of Care Code ED Ui Developer With [employer] J[employer] for Gianfranco Britton
--- NOTE | 2024-10-24 05:52 | XRR_ITS ---
PROCEDURE INFORMATION: Exam: XR Chest Exam date and time: 10/24/2024 7:05 AM Age: 49 years old Clinical indication: Shortness of breath; Additional info: Sepsis workup. TECHNIQUE: Imaging protocol: Radiologic exam of the chest. Views: 1 view. COMPARISON: CT abdomen pelvis wo con [id number] 07/20/2024 2:24 PM FINDINGS: Lungs: No dominant consolidation. Mildly coarsened perihilar interstitial markings. Scattered small calcified granulomas. Pleural spaces: No pleural effusion. No pneumothorax. Heart/Mediastinum: No cardiomegaly. Bones/joints: No acute abnormality. XR/XR chest 1V portable [id number] IMPRESSION: 1. No dominant consolidation. 2. Mild perihilar interstitial coarsening which may reflect chronic interstitial change. Recommend clinical correlation to exclude early pulmonary edema or atypical infection.
--- NOTE | 2024-10-24 05:54 | ECG_ITS ---
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 Measurements Intervals [place] Rate: 100 P: 72 IN: 143 QRS: 85 QRSD: 101 T: -34 QT: 341 QTc: 440 Interpretive Statements SINUS TACHYCARDIA NON SPECIFIC ST T WAVE CHANGES Compared to ECG 10/24/2024 03:26:41 No significant changes Electronically Signed On 10-26-2024 08:48:43 CDT by Carlos Pena M.D. [email or web address]
--- NOTE | 2024-10-24 05:54 | PC.NURSE ---
96 Hour Involuntary Hold Patient Rights have been reviewed with the patient and a copy of the same has been provided to him. Crawler Tractor Operator Torres Caballero was present at bedside during the presentation of Rights.
[2024-10-24] MEDS: LORazepam 1 MG/0.5 ML injection 2 MG (06:03)
[2024-10-24] MEDS: diphenhydrAMINE 50 mg/mL SDV 1mL IM (06:03)
[2024-10-24] MEDS: haloperidol inj 5 mg/mL INJ 1 mL IM (06:03)
--- NOTE | 2024-10-24 06:05 | PC.NURSE ---
Tomasa echevarriaboathouse keeper had to override Ativan due to order complication. Medication was administered IM.
--- NOTE | 2024-10-24 06:21 | P.HP_ITS ---
Providers/Chief Complaint Chief Complaint: Abnormal labs History of Present Illness Aidan Rodrigues is a 49 year old male with a past medical history of psychosis, hypothyroidism, methamphetamine abuse, who presents [facility] for altered mental status. Currently patient is alert to person, not to place, not to time he is quite agitated, getting up off the gurney, roaming around the room, he is having trouble staying still, mumbling, talking to himself at times, security at bedside. When asked him what is bothering him, he acts very paranoid, asks me why I am asking all these questions, what I am going to do with information, he starts talking about me putting the information into his system, and that they would have access to it or something to that effect, not very forthcoming with history the history, at times quite tangential, but does tell me that he has low back pain. He does report that he smokes cigarettes. Denies any alcohol use. Does report cocaine and methamphetamine use. He asked me why I am holding him here, in between the ED he is rambling to himself which sounds incoherent, does not have good eye contact, he is on a 96-hour hold by the ER provider. Patient was found to have leukocytosis, GEETA, had left the emergency room, AGAINST MEDICAL ADVICE, but was convinced to come back to the ER by his , and now is back. Medications/Allergies Home Medications ?Medication ?Instructions ?Recorded ?Confirmed ?Last Taken ?Type levothyroxine 300 mcg tablet 300 mcg PO DAILY 30 days #30 tabs 07/25/24 Unknown Rx olanzapine 5 mg disintegrating 5 mg PO Q4H PRN 5 Unknown Rx tablet Agitation/Psychosis 30 days #30 tabs trazodone 50 mg tablet 50 mg PO BEDTIME PRN Insomni a 30 07/25/24 Unknown Rx days #30 tabs Allergies Allergy/AdvReac Type Severity Reaction Status Date / Time No Known Allergies Allergy Verified 10/24/24 03:28 PFSH Acute PFSH: Medical History Psychiatric care Methamphetamine abuse No significant past medical history Surgical History History of hernia repair History of carpal tunnel surgery Social History Substance/Drug Use: current Vitals/I&O/Wt Last Vital Signs Temp 98.5 F 10/24/24 05:11 Pulse 117 H 10/24/24 05:11 Resp 19 H 10/24/24 05:11 BP 159/104 10/24/24 05:11 Pulse Ox 95 10/24/24 05:11 O2 Del Method Room Air 10/24/24 05:11 Weight last 48 hrs Weight 74.843 kg Physical Exam Const: COMMON NORMALS: no acute distress OTHER: Difficult to examine patient given his acute psychosis, will not lay still, will not get back in gurney, whenever my stethoscope was placed on his chest to l isten to his lungs he would jump up, try to push me away, acting very paranoid, acutely psychotic, rambling that is incoherent at times, talking to himself HENMT: COMMON NORMALS: normocephalic HEAD & SCALP: normocephalic Neck/C-Spine: COMMON NORMALS: no JVD Resp: COMMON NORMALS: normal respiratory effort, No retractions, No use of accessory muscles and clear to auscultation bilaterally AUSCULTATION: clear to auscultation bilaterally Cardio: COMMON NORMALS: regular rate, regular rhythm, S1 normal heart sound present and S2 normal heart sound present RATE: regular rate RHYTHM: regular rhythm HEART SOUNDS: S1 normal heart sound present and S2 normal heart sound present GI: OTHER: Patient would not allow abdominal examination, Extremity: COMMON NORMALS: no calf tenderness and no pedal edema OTHER: Alert to person, not to place, to time, does follow some commands, I cannot discern any facial droop, he is standing up on both legs, flailing both arms Neuro: COMMON NORMALS: moves all extremities Psych: COMMON NORMALS: mental status grossly normal A&P Assessment and plan 1. Acute psychosis: 2. Rhabdomyolysis: 3. GEETA (acute kidney injury): 4. Altered mental status: 5. Sepsis: Plan: Altered mental status - Currently on a 96-hour hold - Reported under the effect of methamphetamines, and cocaine - Urine toxicology screen pending - Salicylate level within normal limits, Tylenol within normal limits - Is on Zyprexa as outpatient - Concerns for possible sepsis, given leukocytosis, awaiting urine, - Will need to consult psychiatry in the morning Back pain - Difficult to examine patient given his acute psychosis - Will order renal ultrasound - Urinalysis - Concerns for possible UTI start Rocephin Sepsis? - Source unclear but possible UTI given his back pain complaints - Blood cultures, urinalysis, chest x-ray, inflammatory markers - Will start Rocephin - Will consider further imaging based on clinical progress Drug abuse - Patient is not forthcoming on how he has used drugs, injection/orally - Will obtain blood cultures - HIV - Hep panel - Inflammatory markers Acute kidney injury - IV fluids Rhabdomyolysis - IV fluids Hypothyroidism, levothyroxine Full code Lovenox for DVT prophylaxis PDMP PDMP Reviewed: Not Reviewed Attestations Medical Necessity Statement*: Patient requires hospitalization, inpatient, greater than 2 midnights for altered mental status, GEETA, rhabdomyolysis, sepsis, psychosis, currently on a 96-hour hold Diagnoses Acute psychosis F23 Rhabdomyolysis M62.82 GEETA (acute kidney injury) N17.9 Altered mental status R41.82 Sepsis A41.9
--- NOTE | 2024-10-24 06:34 | US_ITS ---
WS: [id number] RENAL ULTRASOUND HISTORY: martha COMPARISON: None available. TECHNIQUE: 2-D and color Doppler imaging of the kidney submitted. Right kidney: 9.6 cm x 6.2 cm x 5.3 cm. Cortex: 1.1 cm Normal echogenicity with no hydronephrosis or mass. Left kidney: 9.1 cm x 4.6 cm x 4.4 cm. Cortex: 1.0 cm Normal echogenicity with no hydronephrosis or mass. Aorta: Normal. Urinary Bladder: Normal distention. US/US renal BI* [id number] IMPRESSION: Normal renal ultrasound.
[2024-10-24 06:56] LABS: Lactic Sepsis W/Reflex 2.4 mmol/L (0.5-2.2)
[2024-10-24 07:04] LABS: Free T4 Free Thyroxine 1.39 ng/dL (0.82-1.77); Procalcitonin 0.49 ng/mL (0-0.5); Thyroid Stimulating Hormone 1.86 uIU/mL (0.27-4.20)
--- NOTE | 2024-10-24 07:04 | PC.NURSE ---
ASSUMED CARE OF PATIENT AT 0700 FROM NATALIO OROZCO.
[2024-10-24 07:06] LABS: Estmated Average Glucose 114; Hemoglobin A1C 5.6 % (4.0-6.0)
--- NOTE | 2024-10-24 07:12 | PC.NURSE ---
DELAY IN ANTIBIOTIC ADMINISTRATION DUE TO BLOOD CULTURES BEING ORDERED AND NOT DRAWN YET. LAB NOTIFIED AT THIS TIME AND INFORMED THIS NURSE THAT SOMEONE WOULD COME AND DRAW THEM SOON.
[2024-10-24 07:15] LABS: Cholesterol 216 mg/dL (0-200); HDL Cholesterol 86 mg/dL (60-100); Triglycerides 82 mg/dL (0-150)
[2024-10-24 07:31] LABS: HIV 1 & 2 Antigen Non-Reactive (Non-Reactiv)
[2024-10-24] MEDS: cefTRIAXone 1,000 mg SDV 1000 MG IVP (07:31)
--- NOTE | 2024-10-24 07:48 | PC.NURSE ---
WHILE THIS NURSE WAS ATTEMPTING TO CATH PATIENT, A CLEAR BAG OF AN UNKNOWN GREEN SUBSTANCE WAS FOUND AROUND PATIENT'S PENIS. DR. LANGE NOTIFIED AND GAVE VERBAL ORDERS TO CALL SECURITY. SECURITY NOTIFIED. SECURITY REMOVED THE BAG OF THE UNKNOWN GREEN SUBSTANCE.
[2024-10-24 07:58] LABS: Hepatitis A Antibody IgM Non-Reactive (Nonreactive); Hepatitis B Surface Antigen Non-Reactive (Nonreactive)
[2024-10-24 08:00] LABS: Glucose Urine UA Negative (Normal); Nitrate Urine Negative (Negative); Specific Gravity, Urine 1.018 (1.005-1.030)
[2024-10-24 08:05] LABS: Add Urine Microscopic? YES
[2024-10-24 08:07] LABS: PCP Screen Urine Negative (Negative)
--- NOTE | 2024-10-24 08:14 | PC.NURSE ---
PATIENT BELONGINGS INVENTORIED BY THIS NURSE AND SECURITY SATYA.
[2024-10-24 08:23] LABS: Reflex Lactate Order REFLEX LACTIC ORDERD
--- NOTE | 2024-10-24 08:37 | PC.PHAR ---
I was unable to speak to patient he was sleeping . I spoke with Pharacy and last fill date for listed medications was 07/25/24 30days. No further fills from [facility].
--- NOTE | 2024-10-24 08:40 | PC.PHAR ---
[facility] and Patient hasn't picked up anything since March 2024.At that time he picked up Levothyroxine 300 for 90days .
[2024-10-24 08:48] LABS: UA Slide Review UA Slide Review Perf
[2024-10-24 09:26] LABS: Lactic Acid level (Lactate) 0.8 mmol/L (0.5-2.2)
--- NOTE | 2024-10-24 13:26 | PC.NURSE ---
talked with this am as pt unable to answer questions, udate given and explained 96hr hold , reported that he hand only done one line of cocaine and had not been acting right since, think meth yesterday , but did relate that he take meds bought a [place] station called [employer], {hydroxymitragynine} and that he takes a lot of them .sitter at bedside rt 96hr hold
--- NOTE | 2024-10-24 17:43 | PC.NURSE ---
alert and oriented aware of 96hr hold and in icu at this time evening meal served . sitter 1 to 1 at beside ,cooperative with staff
[2024-10-25] VITALS (12 sets, daily range): BP systolic 94–122; BP diastolic 52–74; PULSE 49–68; RESP 15–20; TEMP 36.4–36.7; O2SAT 93–97
[2024-10-25] MEDS: cefTRIAXone 1,000 mg SDV 1000 MG IVP (05:51)
[2024-10-25 09:19] LABS: Hematocrit 40.7 % (37-53); Hemoglobin 13.30 g/dL (11.27-16.99); Mean Corpuscular HGB Conc 32.7 g/dL (30-55); Mean Corpuscular Hemoglobin 28.9 pg (27-33); Mean Corpuscular Volume 88.3 fl (82-101); Nucleated Red Blood Cells % 0 %; Platelet Count 240 10^3/cmm (157-399); Red Blood Count 4.61 10^6/uL (3.85-5.65); White Blood Count 9.28 10^3/uL (3.29-11.43)
[2024-10-25 09:40] LABS: Alanine Aminotransferase 33 U/L (0-41); Albumin Level 3.5 g/dL (3.5-5.2); Alkaline Phosphatase 87 U/L (40-130); Anion Gap 12.6 (5-19); Aspartate Amino Transferase 63 U/L (0-40); Blood Urea Nitrogen 18 mg/dL (6-20); Calcium 8.4 mg/dL (8.5-10.5); Carbon Dioxide 26 mmol/L (22-29); Chloride 102 mmol/L (98-107); Creatinine Clr Calc Pharmacy 104.3992; Globulin 2.2 g/dL (1.3-4.6); Glucose 151 mg/dL (65-115); Osmolality Calculated 289 mOsm/kg (285-295); Potassium 3.6 mmol/L (3.5-5.1); Sodium 137 mmol/L (136-145); Total Protein 5.7 g/dL (6.6-8.7)
--- NOTE | 2024-10-25 14:15 | PC.NURSE ---
Discharged home with . Educated on need for hydration and avoidance of over the counter medication without consulting MD.
--- NOTE | 2024-10-25 17:03 | P.DS_ITS ---
Discharge Providers Date of Admission: 10/24/24 07:29 Date of Discharge: October 25, 2024 Attending Provider at Admission: Vasiliy Banerjee MD Attending Provider at Discharge: Robina Quintana MD Diagnoses at Discharge Discharge Diagnosis 1. Rhabdomyolysis: 2. GEETA (acute kidney injury): 3. Altered mental status: 4. Methamphetamine use disorder, severe: 5. Drug abuse: Reason for Visit Reason for Visit: Abnormal labs Hospital Course Hospital Course 49 year old male with a past medical history of psychosis, hypothyroidism, methamphetamine abuse, who presented [facility] for altered mental status. He was quite agitated on arrival. His reported that patient had been abusing cocaine and other illicit drugs at home. Patient was admitted to the hospital in view of rhabdomyolysis and leukocytosis of 22,000. Additionally had an GEETA with a creatinine of 4.0. Initially he left AMA from the hospital but was brought back by his due to abnormal labs. He was placed on a 96-hour hold due to his agitation and questionable decision- making capacity due to drug overdose. Patient was started on IV hydration with normal saline. His kidney function corrected quickly after starting hydration. Creatinine trended down from 4-0.8. His urine output over the last 24 hours was 1300 mL. There were no signs of urinary retention. Leukocytosis quickly corrected with hydration from 22,000- 9000. This is unlikely to be sepsis and more likely to be related to severe dehydration. He had evidence of rhabdomyolysis with initial CK upon arrival at 2600, trending down to 1900 at the time of discharge. He is clinically much improved today. Patient is alert awake oriented x 4. No focal deficits on exam. He is appropriate in conversation. 96-hour hold was rescinded as patient is clearly demonstrating decision-making capacity currently. Counseled extensively to abstain from polysubstance abuse, information provided for drug rehab. He is being discharged today in improved condition Physical Exam Narrative: General: No acute distress, AO x3 HEENT: PERRLA, pupils bilaterally equal and reactive, pallors not present Chest: Normal vesicular breath sounds, no added sounds, equal good air entry bilaterally CVS: S1-S2 regular, no murmurs, no tachycardia, no gallops, no rubs Abdomen: Soft, nontender, no organomegaly, bowel sounds present Neuro: No focal deficits, no facial deformity, AO x3, power 5/5 in all limbs Urinary Catheter Management: Colon: Cath Placed During This Visit: yes Reason for Continuing Indwelling Catheter: Accurate Measurement of Urinary Output in Critically Ill Patients Urinary Catheter Date of Insertion: 10/24/24 Urinary Catheter Time of Insertion: 07:45 Discharge Data Studies Completed and Pending Completed Studies During Hospitalization Category Date Time Status CXRP [XR chest 1V portable [id number]] Stat Exams 10/24/24 05:52 Completed US renal BI* [id number] Stat Ultrasound 10/24/24 06:34 Completed Pending at discharge Category Date Time Status Blood Culture Stat Lab 10/24/24 07:25 Results Drug Screen Serum [Serum Drug Panel 7] Routine Lab 10/24/24 03:50 Received Urine Culture Stat Lab 10/24/24 07:44 Results Radiology Impressions Chest X-Ray 10/24/24 05:52 IMPRESSION: 1. No dominant consolidation. 2. Mild perihilar interstitial coarsening which may reflect chronic interstitial change. Recommend clinical correlation to exclude early pulmonary edema or atypical infection. Renal Ultrasound 10/24/24 06:34 IMPRESSION: Normal renal ultrasound. Laboratory Results WBC 9.28 10^3/uL (3.29-11.43) 10/25/24 09:06 RBC 4.61 10^6/uL (3.85-5.65) 10/25/24 09:06 Hgb 13.30 g/dL (11.27-16.99) 10/25/24 09:06 Hct 40.7 % (37-53) 10/25/24 09:06 MCV 88.3 fl (82-101) 10/25/24 09:06 MCH 28.9 pg (27-33) 10/25/24 09:06 MCHC 32.7 g/dL (30-55) D 10/25/24 09:06 RDW 13.4 % (12.1-15.1) 10/25/24 09:06 Plt Count 240 10^3/cmm (157-399) D 10/25/24 09:06 MPV 10.1 fL (7.4-10.4) 10/25/24 09:06 Neut % (Auto) 79.5 % 10/25/24 09:06 Lymph % (Auto) 8.9 % 10/25/24 09:06 Cambria % (Auto) 9.6 % 10/25/24 09:06 Eos % (Auto) 1.3 % 10/25/24 09:06 Baso % (Auto) 0.3 % 10/25/24 09:06 Neut # (Auto) 7.37 10^3/uL (1.8-7.7) 10/25/24 09:06 Lymph # (Auto) 0.8 10^3/uL (0.8-4.8) 10/25/24 09:06 Cambria # (Auto) 0.9 10^3/uL (0.2-0.9) 10/25/24 09:06 Eos # (Auto) 0.1 10^3/uL (0.0-0.8) 10/25/24 09:06 Baso # (Auto) 0.0 10^3/uL (0.0-0.1) 10/25/24 09:06 Nucleated RBC % (auto) 0 % 10/25/24 09:06 Nucleated RBCs # 0.0 /100WBC 10/25/24 09:06 ESR 16 mm/hr (0-10) H 10/24/24 03:50 Sodium 137 mmol/L (136-145) 10/25/24 09:06 Potassium 3.6 mmol/L (3.5-5.1) 10/25/24 09:06 Chloride 102 mmol/L (98-107) 10/25/24 09:06 Carbon Dioxide 26 mmol/L (22-29) 10/25/24 09:06 Anion Gap 12.6 (5-19) 10/25/24 09:06 BUN 18 mg/dL (6-20) 10/25/24 09:06 Creatinine 0.8 mg/dL (0.7-1.2) 10/25/24 09:06 GFR Calculation 103.2 mL/min (90-130) 10/25/24 09:06 Glucose 151 mg/dL (65-115) H 10/25/24 09:06 Estimat Average Glucose 114 10/24/24 03:50 Hemoglobin A1c 5.6 % (4.0-6.0) 10/24/24 03:50 Calculated Osmolality 289 mOsm/kg (285-295) 10/25/24 09:06 Lactic Acid 2.4 mmol/L (0.5-2.2) H 10/24/24 03:50 Lactic Acid (Sepsis) 0.8 mmol/L (0.5-2.2) 10/24/24 09:02 Calcium 8.4 mg/dL (8.5-10.5) L 10/25/24 09:06 Total Bilirubin 0.6 mg/dL (0.15-1.2) 10/25/24 09:06 AST 63 U/L (0-40) H 10/25/24 09:06 ALT 33 U/L (0-41) 10/25/24 09:06 Alkaline Phosphatase 87 U/L (40-130) 10/25/24 09:06 Creatine Kinase 1904 U/L (39-308) H* 10/25/24 09:06 C-Reactive Protein 17.2 mg/L (0.0-4.9) H 10/24/24 03:50 Total Protein 5.7 g/dL (6.6-8.7) L 10/25/24 09:06 Albumin 3.5 g/dL (3.5-5.2) 10/25/24 09:06 Globulin 2.2 g/dL (1.3-4.6) 10/25/24 09:06 Triglycerides 82 mg/dL (0-150) 10/24/24 03:50 Cholesterol 216 mg/dL (0-200) H 10/24/24 03:50 LDL Cholesterol, Calc 114 mg/dL (50-129) 10/24/24 03:50 HDL Cholesterol 86 mg/dL (60-100) 10/24/24 03:50 LDL/HDL Ratio 1.33 RATIO (0.00-3.22) 10/24/24 03:50 Cholesterol/HDL Ratio 2.51 mg/dL (1.0-5.00) 10/24/24 03:50 Procalcitonin 0.49 ng/mL (0-0.5) 10/24/24 03:50 TSH 1.86 uIU/mL (0.27-4.20) 10/24/24 03:50 Free T4 1.39 ng/dL (0.82-1.77) 10/24/24 03:50 Free T3 2.0 PG/ML (2.0-4.4) 10/24/24 03:50 Urine Color Yellow (Yellow) 10/24/24 07:44 Urine Appearance Cloudy (CLEAR) A 10/24/24 07:44 Urine pH 5.0 (5-7) 10/24/24 07:44 Ur Specific Garner 1.018 (1.005-1.030) 10/24/24 07:44 Urine Protein 2+ (Negative) A 10/24/24 07:44 Urine Glucose (UA) Negative (Normal) 10/24/24 07:44 Urine Ketones 1+ (Negative) H 10/24/24 07:44 Urine Blood 3+ (Negative) A 10/24/24 07:44 Urine Nitrate Negative (Negative) 10/24/24 07:44 Urine Bilirubin Negative (Negative) 10/24/24 07:44 Urine Urobilinogen 1.0 mg/dL (Negative) 10/24/24 07:44 Ur Leukocyte Esterase Negative (Negative) 10/24/24 07:44 Urine RBC 11-20 /hpf (0-2) H 10/24/24 07:44 Urine WBC 0-5 /hpf (0-5) 10/24/24 07:44 Ur Squamous Epith Cells 0-5 /hpf (0-5) 10/24/24 07:44 Amorphous Sediment Not Reportable 10/24/24 07:44 Urine Bacteria None seen /hpf (NONE) 10/24/24 07:44 Hyaline Casts 43.84 /lpf 10/24/24 07:44 Urine Mucus Trace /hpf 10/24/24 07:44 Urine Opiates Screen Negative ng/mL (Negative) 10/24/24 07:44 Ur Barbiturates Screen Negative ng/mL (Negative) 10/24/24 07:44 Ur Phencyclidine Scrn Negative ng/mL (Negative) 10/24/24 07:44 Ur Amphetamines Screen Positive ng/mL (Negative) H 10/24/24 07:44 U Benzodiazepines Scrn Negative ng/mL (Negative) 10/24/24 07:44 Urine Cocaine Screen Negative ng/mL (Negative) 10/24/24 07:44 U Marijuana (THC) Screen Negative ng/mL (Negative) 10/24/24 07:44 Hepatitis A IgM Ab Non-reactive (Nonreactive) 10/24/24 03:50 Hep Bs Antigen Non-reactive (Nonreactive) 10/24/24 03:50 Hep B Core IgM Ab Non-reactive (Nonreactive) 10/24/24 03:50 Hepatitis C Antibody Non-reactive (Nonreactive) 10/24/24 03:50 HIV 1&2 Ab & HIV 1 Ag Non-reactive (Non-Reactiv) 10/24/24 03:50 HIV 1&2 Antibody Non-reactive (Non-Reactiv) 10/24/24 03:50 Vitals Last Vital Signs Temp 97.5 F L 10/25/24 13:41 Pulse 60 10/25/24 13:41 Resp 16 10/25/24 13:41 BP 103/59 10/25/24 13:41 Pulse Ox 97 10/25/24 13:41 O2 Del Method Room Air 10/25/24 12:00 Discharge Plan Discharge Patient Disposition: Home Condition: Stable Prescriptions: Continued olanzapine 5 mg Tablet,Disintegrating 5 mg PO Q4H PRN (Reason: Agitation/Psychosis) 30 Days Qty: 30 1RF trazodone 50 mg Tablet 50 mg PO BEDTIME PRN (Reason: Insomnia) 30 Days Qty: 30 1RF levothyroxine 300 mcg tablet 300 mcg PO DAILY 30 Days Qty: 30 1RF Discharge Order = DC NOW: Discharge Order (Routine); Ordered 10/25/24 Ordered By: Robina Quintana Patient Instructions: Opioid Safety, Patient Portal & Cesar Instructions Discharge Attestations Time Spent in Discharge Care*: greater than 30 min Quality Metrics Clinical Quality Measures [ No reported AMI, CVA or VTE this stay] Coding Level of Care Code Acute Code for Chg Fwd Diagnoses Acute psychosis F23 Rhabdomyolysis M62.82 Rhabdomyolysis type: non-traumatic GEETA (acute kidney injury) N17.9 Altered mental status R41.82 Methamphetamine use disorder, severe F15.20 Drug abuse F19.10
== END 2024-10-25 14:00 | disposition home or self-care (01) | DRG 558 ==
LOC: ER 05:44 → ER IP 07:29 → CSU 07:40 → ICU 07:40
PROVIDERS: Admitting Provider Family Medicine; Emergency Provider Emergency Medicine; Visit Provider Student in an Organized Health Care Education/Training Program
DX: M62.82 Rhabdomyolysis (principal); N17.9 Acute kidney failure, unspecified; F23 Brief psychotic disorder; E86.0 Dehydration; F15.10 Other stimulant abuse, uncomplicated; F14.10 Cocaine abuse, uncomplicated; E03.9 Hypothyroidism, unspecified; R45.1 Restlessness and agitation; F17.210 Nicotine dependence, cigarettes, uncomplicated; M54.9 Dorsalgia, unspecified; Z79.891 Long term (current) use of opiate analgesic
CPT/HCPCS: 36415; 51702; 71045; 76770; 80053; 80061; 80074; 80306; 80307; 81001; 82550; 83036; 83605; 84145; 84439; 84443; 84481; 85025; 85651; 86140; 87040; 87086; 87806; 93005; 94664; 96360; 96372; 99285; J0696; J1200; J1650; J2060; J7030; J9999